=== PATIENT | male | born 1965 | race Caucasian/White ===

== ENCOUNTER → 2018-01-30 09:18 | Outpatient (CLI) | payer OTHER, SELFPAY ==
[2018-01-30 10:24] LABS: Absolute Lymphocyte Count 1.86 X10^3/ul (0.83-4.51); Absolute Neutrophil Count 4.4 X10^3/uL (2.0-7.7); Basophil# 0.02 X10^3/uL; Basophil% 0.3 % (0-1); Eosinophil# 0.12 X10^3/uL; Eosinophils% 1.7 % (0-5); Hematocrit 38.7 % (40-54); Hemoglobin 12.9 g/dl (13.0-16.5); Lymphocyte # 1.86 X10^3/ul (4.0); Lymphocyte % 26.2 % (19-41); Mean Corp Hgb Conc 33.3 g/gl (32-36); Mean Corpuscular Hgb 30.2 pg (27.0-32.0); Mean Corpuscular Volume 90.6 fL (80-94); Monocyte# 0.65 X10^3/uL; Monocyte% 9.2 % (0-10); Neutrophil # 4.42 X10^3/uL (2.7-7.7); Neutrophil % 62.2 % (47-70); Platelet Count 318 K/mm3 (150-450); RBC Distribution Width CV 12.4 % (11.6-14.6); RBC Distribution Width SD 40.7 fl (35.1-43.9); Red Blood Count 4.27 M/mm3 (4.6-6.2); White Blood Count 7.1 K/mm3 (4.4-11.0)
[2018-01-30 10:26] LABS: POSITIVE COUNT NO; POSITIVE DIFFERENTIAL NO; POSITIVE MORPHOLOGY NO
[2018-01-30 11:05] LABS: AST(SGOT) 41 U/L (15-37); Alanine Aminotransfer ALT/SGPT 47 U/L (16-61); Albumin, Serum 3.8 g/dL (3.2-5.0); Alkaline Phosphatase 45 U/L (45-117); Anion Gap 8 (5-15); BUN 13 mg/dL (7-18); BUN/Creat Ratio 11.7 RATIO (10-20); Calcium,Total 8.9 mg/dL (8.5-10.1); Chloride 102 mmol/L (98-107); Cholesterol 159 mg/dL (200); Creatinine, Serum 1.11 mg/dL (0.70-1.30); EST Glomerular Filtration Rate 73 mL/min (>60); Est Glom Filt Rate - Afr Amer 89 mL/min (>60); Globulin 3.6 g/dL (2.2-4.2); Glucose 109 mg/dL (74-106); High Density Lipoprotein 37 mg/dL; Potassium 3.9 mmol/L (3.5-5.1); Protein, Total 7.4 g/dL (6.4-8.2); Sodium Level 135 mmol/L (136-145); Triglycerides 172 mg/dL; Very Low Density Lipoprotein 34 mg/dL (5-40)
== END ==
PROVIDERS: Family Provider Family Medicine; PCP Family Medicine; Visit Provider Family Medicine
DX: E11.9 Type 2 diabetes mellitus without complications (principal); D64.9 Anemia, unspecified
CPT/HCPCS: 36415; 80048; 80061; 80076; 85025

== ENCOUNTER → 2018-06-30 06:18 | Outpatient (CLI) | payer OTHER, SELFPAY | PROVIDERS: Family Provider Family Medicine; PCP Family Medicine; Referring Provider Family Medicine; Visit Provider Family Medicine | DX: R06.02 Shortness of breath (principal) ==

== ENCOUNTER → 2018-07-14 09:38 | Outpatient (CLI) | payer OTHER, SELFPAY ==
--- NOTE | 2018-07-14 09:42 | STE_ITS ---
Reason For Study: SOB Stress Results Protocol: Nathanael Protocol Maximum Predicted HR: 166 bpm Target HR: 141 bpm% Max imum Predicted HR: 102 % DurationHeart Rate Stage (mm:ss) (bpm) BPCom ment BASELINE 83 138/84 1CC DEFINITY STAGE 1 3:00 13 0 182/90 STAGE 2 3:00 17 0 208/941 CC DEFINITY RECOVERY 116 158/8 21CC DEFINITY Stress Duration: 6:00 mm:ss Maximum Stress HR: 170 bpmM ETS: 7 Baseline Echocardiogram Findings Stress Echo Wall motion Data Resting WMIntermediate WMStress WM Resting Wall Motion Wall Motion Stress Ejection Fraction 60 %. All segments Hyperkinetic. All segments Normal. Ejection Fraction 75 %. Stress Results Heart rate response: appropriate Blood pressure response: normal resting BP - exaggerated response Arrhythmias: none Functional capacity: average Stopped secondary to: dyspnea. EKG Data The baseline ECG displays normal sinus rhythm. Exercise ECG: No obvious ECG changes. Symptoms with Stress No c/o chest discomfort during exercise / recovery. Interpretation Summary The study was technically difficult. Contrast injection was performed. Negative (Adequate) Stress Echocardiogram Negative (Adequate) ECG ETT Blood pressure response: exaggerated response to exercise Ordering Physician: Da Spangler Referring Physician: Da Spangler Performed By: Jocelyne Nazario, ARIELLE, RVT
== END ==
PROVIDERS: Family Provider Family Medicine; PCP Family Medicine; Referring Provider Family Medicine; Visit Provider Family Medicine
DX: R06.02 Shortness of breath (principal)
CPT/HCPCS: 93017; 93350; Q9957; A4216; C8928

== ENCOUNTER → 2018-08-06 08:33 | Outpatient (CLI) | payer OTHER, SELFPAY ==
[2018-08-06 10:51] LABS: Absolute Lymphocyte Count 2.12 X10^3/ul (0.83-4.51); Absolute Neutrophil Count 4.1 X10^3/uL (2.0-7.7); Basophil# 0.03 X10^3/uL; Basophil% 0.4 % (0-1); Eosinophil# 0.23 X10^3/uL; Eosinophils% 3.3 % (0-5); Hematocrit 39.4 % (40-54); Hemoglobin 12.9 g/dl (13.0-16.5); Lymphocyte # 2.12 X10^3/ul (4.0); Mean Corp Hgb Conc 32.7 g/gl (32-36); Mean Corpuscular Hgb 30.4 pg (27.0-32.0); Mean Corpuscular Volume 92.7 fL (80-94); Monocyte# 0.53 X10^3/uL; Monocyte% 7.5 % (0-10); Neutrophil # 4.14 X10^3/uL (2.7-7.7); Neutrophil % 58.7 % (47-70); Platelet Count 339 K/mm3 (150-450); RBC Distribution Width SD 43.9 fl (35.1-43.9); Red Blood Count 4.25 M/mm3 (4.6-6.2); White Blood Count 7.1 K/mm3 (4.4-11.0)
[2018-08-06 10:53] LABS: POSITIVE COUNT NO; POSITIVE DIFFERENTIAL NO; POSITIVE MORPHOLOGY NO
[2018-08-06 10:57] LABS: AST(SGOT) 30 U/L (15-37); Alanine Aminotransfer ALT/SGPT 54 U/L (16-61); Albumin, Serum 3.8 g/dL (3.2-5.0); Alkaline Phosphatase 45 U/L (45-117); Anion Gap 8 (5-15); BUN 13 mg/dL (7-18); BUN/Creat Ratio 11.9 RATIO (10-20); Bilirubin, Direct 0.13 mg/dL (0.00-0.30); Calcium,Total 9.2 mg/dL (8.5-10.1); Chloride 101 mmol/L (98-107); Cholesterol 186 mg/dL (200); Creatinine, Serum 1.09 mg/dL (0.70-1.30); EST Glomerular Filtration Rate 75 mL/min (>60); Est Glom Filt Rate - Afr Amer 90 mL/min (>60); Globulin 3.3 g/dL (2.2-4.2); Glucose 114 mg/dL (74-106); High Density Lipoprotein 38 mg/dL; Potassium 4.4 mmol/L (3.5-5.1); Protein, Total 7.1 g/dL (6.4-8.2); Sodium Level 135 mmol/L (136-145); Triglycerides 207 mg/dL; Very Low Density Lipoprotein 41 mg/dL (5-40)
[2018-08-06 11:00] LABS: Hemoglobin A1c 6.7 % (4.2-6.3)
== END ==
PROVIDERS: Family Provider Family Medicine; PCP Family Medicine; Visit Provider Family Medicine
DX: E11.9 Type 2 diabetes mellitus without complications (principal)
CPT/HCPCS: 36415; 80048; 80061; 80076; 83036; 85025; 85610

== ENCOUNTER → 2018-08-13 07:19 | Outpatient (CLI) | payer OTHER, SELFPAY ==
--- NOTE | 2018-08-13 08:22 | RAD_ITS ---
STUDY: X-RAY CHEST REASON FOR EXAM: Male, 52 years old. Shortness of breath TECHNIQUE: PA and lateral views of the chest. COMPARISON: None. FINDINGS: Mild elevated right hemidiaphragm. There is no focal parenchymal abnormality. There is no demonstrated pleural abnormality. Normal size heart. Normal mediastinum and gretel. Normal visualized pulmonary arteries. Normal visualized aortic arch and descending thoracic aorta. Normal visualized thoracic spine. Normal visualized ribs, clavicles, and shoulders. Degenerative clips in the upper abdomen. RAD/Chest PA and Lateral IMPRESSION: No pulmonary edema, congestive heart failure or confluent pneumonia. Electronically Signed: Florence Kessler MD at 7:30 EST , Service support ,
--- NOTE | 2018-08-14 06:24 | PFTCOMP ---
COMPLETE PULMONARY FUNCTION TEST INTERPRETATION Brief HPI: Patient is a 52 year old male, currently under the care of Dr. Mcintyre, who presents to [facility] for complete pulmonary function tests secondary to diagnosis of dyspnea. Respiratory therapist reports good effort and reproducible results. Patient was unable to tolerate plethysmography, so nitrogen washout had to be used for lung volumes. Interpretation: Forced expiration spirometry shows no large airways obstructive ventilatory defect with an FEV1 of 76% predicted. There is no significant bronchodilator response by strict ATS criteria. Spirograms are of good quality and plateau normally. The respiratory flow volume loop shows a normal pattern. Lung volumes by nitrogen washout show a normal total lung capacity at 5.57 L, 86% predicted. All other lung volumes are within normal limits. Diffusion capacity by carbon monoxide is normal at 84% predicted. The airway resistance was not tested. No previous pulmonary function tests were available for review. Impression: These pulmonary function tests are within normal limits
== END ==
PROVIDERS: Family Provider Family Medicine; PCP Family Medicine; Referring Provider Internal Medicine Cardiovascular Disease; Visit Provider Internal Medicine Cardiovascular Disease
DX: R06.09 Other forms of dyspnea (principal)
CPT/HCPCS: 71046; 94060; 94727; 94729

== ENCOUNTER 2018-08-25 07:41 | Day surgery (SDC) | payer OTHER, SELFPAY ==
[2018-08-06 13:43] VITALS: BMI 35.9
[2018-08-24 09:48] VITALS: BMI 35.9
--- NOTE | 2018-08-25 10:21 | CL.D_ITS ---
Patient Name: ZEESHAN ARMAS Study Date: 08/25/2018 Performing: Da Mcintyre MD Ht: 68.89 inches 175 cm : 1965 Wt: 242.51 lbs 110 kg Age: 52 Gender: male BSA: 2.24 PROCEDURE(S) PERFORMED [id number]/LV CLINICAL PROFILE AND INDICATIONS Indications: Suspected CAD Heart Failure: None Stress/Imaging Stress Echocardiogram: Yes Result: Positive (Hypertensive response to exercise)Str ess Echocardiogram: Positive (Hypertensive response to exercise) Angina Classification Anginal Classification w/in 2 Weeks: CCS III CAD Presentations: Other: Dyspnea on Exertion (angina pectoris equivalent) CONCLUSIONS Normal Left Ventricular End Diastolic Pressure Normal LV size, wall motion,and systolic function LVEF: by LV gram 75 % RECOMMENDATIONS Risk factor modification Medical therapy DESCRIPTION OF PROCEDURE The patient arrived to the procedure lab. The risks and benefits of the procedure as well as a full d escription of our services here and current unavailability of surgical backup were fully explained to the patient and/or their significant other prior to the catheterization. The Timeout was completed, verifying the correct patient and procedure. The patient's procedural site was prepped and draped in the usual fashion. Local anesthetic was given subcutaneously to right groin region with Lidocaine 2%. Using a modified Seldinger technique, arterial access was obtained via the right radial artery, a 6F r sheath was inserted. Right Coronary Artery selective angiography was then performed in multiple vi ews using a 5 Fr. 4.0 Smoaks catheter. Left Coronary Artery selective angiography was performed in mul tiple views using a 5 Fr. 4.0 Smoaks catheter. Left Ventriculography was performed in JEAN projection u sing a 5 Fr. Pigtail catheter. LV to AO pullback pressures were then recorded.The arterial sheath was pulled and a TR Band was applied for hemostasis CORONARY ANGIOGRAPHY DOMINANCE: Right Dominant LEFT HEART ASSESSMENT Left Ventricular Ejection Fraction: by LV Gram 75 % Normal LV wall motion Normal Left Ventricular End Diastolic Pressure LVEDP: 10 mmHg LEFT MAIN: Angiographically normal LEFT ANTERIOR DECENDING ARTERY: Angiographically normal CIRCUMFLEX ARTERY: PROX CIRC: 10-25 % Stenosis RIGHT CORONARY ARTERY: MID RCA: 10-25 % Stenosis VALVE FINDINGS: Normal Aortic Valve function Normal Mitral Valve function AORTIC ROOT: Angiographically normal COMPLICATIONS No Complications PROCEDURE MEDICATIONS Versed 1 mg IV Fentanyl 50 mcg IV Versed 1 mg IV Fentanyl 50 mcg IV Oxygen: 2 L/min via nasal cannula Heparin diluted in 23cc Heparinized saline. Patient given 10cc IA of this solution. 08/25/2018 09:46 :42 Verapamil 2.5mg, Ntg 100mcgs, 2000 units of Heparin diluted in 23cc Heparinized saline. Patient give n 10cc IA of this solution. 08/25/2018 09:46:42 SUMMARY OF HEMODYNAMIC DATA Time AIR REST ECG 07:57:17 AO 126/84 (99) SA 09:49:08 LV 121/-3, 7 09:56:31 LV 118/0, 10 09:56:38 LV 123/2, 10 09:57:54 LVp 124/1, 15 09:57:59 AOp 124/74 (94) 09:58:04 Signed By Da Mcintyre MD On 08/25/2018 10:20:38 Da Mcintyre MD
--- OUTSIDE RECORDS SUMMARY | 2018-10-06 20:18 | XMS RPT_ITS ---
:1965 Author Organization OHIP Support Name Relationship Address Phone DYE, CHELSE Unavailable Unavailable + [place] Unavailable [address] + [place] [address] CHANDA RUFUS Unavailable [address] + [place] [address] DYE, CHELSE Unavailable Unavailable + [place] Unavailable [address] + [place] [address] CHANDA, RUFUS Unavailable [address] + [place] [address] DYE, CHELSE Unavailable Unavailable + [place] Unavailable [address] + [place] [address] GOLDIE, RUFUS Unavailable [address] + [place] [address] DYE, CHELSE Unavailable Unavailable + [place] Unavailable [address] + [place] [address] GOLDIE, RUFUS Unavailable [address] + [place] [address] DYE, CHELSE Unavailable Unavailable + [place] Unavailable [address] + [place] [address] GOLDIE, RUFUS Unavailable [address] + [place] [address] DYE, CHELSE Unavailable . + [place] . SE[place] Unavailable [address] + [place] [address] GOLDIE, RUFUS Unavailable [address] + [place] [address] SEACO Unavailable [address] + [place] [address] GOLDIE, RUFUS Unavailable [address] + [place] [address] GOLDIE, CHELSE Unavailable Unavailable + [place] Unavailable [address] + [place] [address] GOLDIE, RUFUS Unavailable [address] + [place] [address] GOLDIE, CHELSE Unavailable Unavailable + [place] Unavailable [address] + [place] [address] GOLDIE, RUFUS Unavailable [address] + [place] [address] GOLDIE, CHELSE Unavailable Unavailable + [place] Unavailable [address] + [place] [address] GOLDIE, RUFUS Unavailable [address] + [place] [address] GOLDIE, CHELSE Unavailable Unavailable + [place] Unavailable [address] + [place] [address] GOLDIE, RUFUS Unavailable [address] + [place] [address] GOLDIE, CHELSE Unavailable Unavailable + [place] Unavailable [address] + [place] [address] GOLDIE, RUFUS Unavailable [address] + [place] [address] GOLDIE, CHELSE Unavailable . + [facility] Providers Name Role Phone Da Mcintyre Attending Unavailable Moodispaw, Da Referring Unavailable Spangler, Da Attending Unavailable Spangler, Da Primary Care Unavailable Spangler, Da Attending Unavailable Spangler, Da Referring Unavailable Spangler, Da Primary Care Unavailable Spangler, Da Attending Unavailable Spangler, Da Referring Unavailable Spangler, Da Primary Care Unavailable Moodispaw, Da Attending Unavailable Spangler, Da Referring Unavailable Jensen, Meena Attending Unavailable Spangler, Da Attending Unavailable Spangler, Da Primary Care Unavailable Moodispaw, Da Attending Unavailable Spangler, Da Referring Unavailable Moodispaw, Da Attending Unavailable Moodispaw, Da Referring Unavailable Spangler, Da Primary Care Unavailable Daniel, Nathanael Attending Unavailable Moodispaw, Da Referring Unavailable Moodispaw, Da Attending Unavailable Spangler, Da Primary Care Unavailable Moodispaw, Da Referring Unavailable Moodispaw, Da Attending Unavailable Moodispaw, Da Referring Unavailable Spangler, Da Primary Care Unavailable PROBLEMS PROBLEMS DATE TYPE CONDITION / CODE ATTENDING STATUS SOURCE 08/25/2018 Unknown E11.9 - Type 2 MoodDa flannery Active [place] diabetes mellitus Community without Hospital complications / Repository E11.9(ICD-10) 08/17/2018 Unknown R06.09 - Other forms Nathanael Sanchez Active [place] of dyspnea / Community R06.09(ICD-10) Hospital Repository 08/06/2018 Unknown I10 - Essential MoodDa flannery Active [place] (primary) Community hypertension / Hospital I10(ICD-10) Repository 08/06/2018 Unknown R94.39 - Abnormal MoodDa flannery Active [place] result of other [facility] cardiovascular [facility] function study / Repository R94.39(ICD-10) 08/05/2018 Unknown R06.02 - Shortness Da Spangler Active [place] of breath / Community R06.02(ICD-10) Hospital Repository PROCEDURES PROCEDURES No Procedure Records FoundRESULTS RESULTS BASIC METABOLIC Collected: 08/27/2018 Status: F Source: [place] PROFILE (BMP) 6:[facility] AM [facility] TYPE CODE TESTS RESULT OUT OF RANGE REFERENCE UNITS LAB L501.0100 74-106 mg/dL Normal GLU 106 Result Comment: Fasting Glucose result from 100 to 125 mg/dL suggests IMPAIRED HOMEOSTASIS per A.D.A. criteria. Please note revised GLUCOSE reference range effective 2017. LAB L501.1000 7-18 mg/dL Normal BUN 18 LAB L501.1100 0.70-1.30 mg/dL Normal CREAT,SERUM 1.19 Result Comment: The validity of the calculated GFR AND GFRAA in patients over 70 years has not been determined. Clinical correlation is essential. LAB L501.1110 >60 mL/min Normal EST GFR 68 Result Comment: Non- GFR Calc LAB L501.1115 >60 mL/min Normal EST GFR - AA 82 Result Comment: GFR Calc LAB L501.1300 10-20 RATIO Normal BUN/CRE 15.1 LAB L501.2200 8.5-10.1 mg/dL CA Normal 9.2 LAB L501.5300 136-145 mmol/L NA Normal 138 LAB L501.5600 3.5-5.1 mmol/L K Normal 3.9 LAB L501.5900 98-107 mmol/L CL Normal 102 LAB L501.6100 21.0-32.0 mmol/L Normal CO2 28.0 LAB L501.6200 5-15 Normal GAP 8 Performed By: #### L500.2500 #### [facility] [address] [place], [address] PULMONARY FUNCTION Observed: 08/15/2018 Status: F Source: [place] REPORT COMP 5:53 AM REPOSITORY [facility] Pulmonary Services/Neurology [address] [place] [address] MR#: [id number] Acct: [id number] Name: ZEESHAN ARMAS Rep #: [id number] : 1965 52 From: Nathanael Sanchez MD Referring Dr: Da Mcintyre MD Status: REG CLI Ordering Dr: Date: Location: [facility] Sex: M C COMPLETE PULMONARY FUNCTION TEST INTERPRETATION Brief HPI: Patient is a 52 year old male, currently under the care of Dr. Mcintyre, who presents to [facility] for complete pulmonary function tests secondary to diagnosis of dyspnea. Respiratory therapist reports good effort and reproducible results. Patient was unable to tolerate plethysmography, so nitrogen washout had to be used for lung volumes. Interpretation: Forced expiration spirometry shows no large airways obstructive ventilatory defect with an FEV1 of 76% predicted. There is no significant bronchodilator response by strict ATS criteria. Spirograms are of good quality and plateau normally. The respiratory flow volume loop shows a normal pattern. Lung volumes by nitrogen washout show a normal total lung capacity at 5.57 L, 86% predicted. All other lung volumes are within normal limits. Diffusion capacity by carbon monoxide is normal at 84% predicted. The airway resistance was not tested. No previous pulmonary function tests were available for review. Impression: These pulmonary function tests are within normal limits 08/15/18 0553 <Electronically signed by Nathanael Sanchez MD> Date Nathanael Sanchez MD CC: Nathanael Sanchez MD; Da Mcintyre MD; Da Spangler MD Date Dictated: 08/14/18623 Date Transcribed: 08/14/18623 Rubber Liner: DEVAN Signed CHEST PA AND LATERAL Observed: 08/13/2018 Status: F Source: [place] 7:21 AM REPOSITORY [facility] Imaging Services [address] [place] [address] Chest PA and Lateral MR#: [id number] Acct: [id number] Name: ZEESHAN ARMAS Rep #: [id number] : 1965 M 52 From: Florence Kessler MD PCP: Da Spangler MD Status: REG CLI Study: Chest PA and Lateral Date of Exam: 08/13/18 Exam# [id number] Ordering Dr: Da Mcintyre MD STUDY: X-RAY CHEST REASON FOR EXAM: Male, 52 years old. Shortness of breath TECHNIQUE: PA and lateral views of the chest. COMPARISON: None. FINDINGS: Mild elevated right hemidiaphragm. There is no focal parenchymal abnormality. There is no demonstrated pleural abnormality. Normal size heart. Normal mediastinum and [place]. Normal visualized pulmonary arteries. Normal visualized aortic arch and descending thoracic aorta. Normal visualized thoracic spine. Normal visualized ribs, clavicles, and shoulders. Degenerative clips in the upper abdomen. RAD/Chest PA and Lateral IMPRESSION: No pulmonary edema, congestive heart failure or confluent pneumonia. Electronically Signed: Florence Kessler MD at 7:30 EST , Service support , CC: Da Mcintyre MD; Da Spangler MD Rubber Liner: Signed CARDIOLOGY VISIT Observed: 08/06/2018 Status: F Source: [place] REPORT 3:14 PM REPOSITORY [facility] [address] [place] [address] OFFICE VISIT Date of Service: 08/06/18 MR#: [id number] Acct: [id number] Name: ZEESHAN ARMAS Rep #: [id number] : 1965 Provider: Da Mcintyre MD Age/Sex: 52/M Location: [facility] Status: Signed HPI HPI Details: ZEESHAN ARMAS, is a 52 M who presents to the office today for cardiovascular consultation based upon concerns of shortness of breath/dyspnea on exertion and an abnormal stress echocardiogram demonstrating a blood pressure response considered compatible with an exaggerated blood pressure response. He states that he has been having progressive shortness of breath and dyspnea on exertion. This includes walking down and back up his driveway. He states if he has to do anything more than walking with a grandchildren at a slow pace he becomes easily short of breath and dyspneic. He has not had any orthopnea, PND, or peripheral pitting edema. He states that with his shortness of breath and dyspnea he does not necessarily have ongoing chest discomfort. He did have a stress echocardiogram. He exercised for 6 minutes. He was noted to have an exaggerated blood pressure response. He had no definitive ECG changes or echocardiographic changes suggestive of myocardial ischemia. However it was a technically diminished quality study and it did involve the use of contrast-enhanced imaging. Today he had an ECG in the office. He was noted to be in sinus rhythm. He has an RSR prime pattern in V1. He has poor R wave progression. He had no acute ECG changes. He has been on antihypertensive therapy with losartan/HCTZ. He states he was on this when he had his exercise tolerance test. He also notes that he is working his way through evaluation for obstructive sleep apnea. Intake Vital Signs08/06/18 Height 5 ft 9 in 08/06/18 Weight: 243 lb 08/06/18 Body Mass Index (BMI) 35.9 08/06/18 Blood Pressure 120/60 Intake Visit Reasons: Abn. Stress Echo, Ref. Malina Calles Allergies No Known Allergies Allergy (Unverified 08/06/18 13:44) Medications fenofibrate 160 mg tablet 160 mg PO DAILY 08/05/18 [History Confirmed 08/06/18] ferrous sulfate 325 mg (65 mg iron) tablet 325 mg PO TID PRN tab 08/05/18 [History Confirmed 08/06/18] metformin 500 mg tablet 500 mg PO DAILY tab 08/05/18 [History Confirmed 08/06/18] omega-3 fatty acids 1,000 mg capsule 1,000 mg PO DAILY 08/05/18 [History Confirmed 08/06/18] amlodipine 2.5 mg tablet 2.5 mg PO DAILY #30 tab 08/06/18 [Rx Confirmed 08/06/18] aspirin 81 mg chewable tablet 81 mg PO DAILY #30 tab 08/06/18 [Rx Confirmed 08/06/18] clopidogrel 75 mg tablet 75 mg PO DAILY #30 tab 08/06/18 [Rx Confirmed 08/06/18] losartan 100 mg-hydrochlorothiazide 12.5 mg tablet 1 tab PO DAILY 08/06/18 [History Confirmed 08/06/18] iipzsiuz-ugr-egzog acid 300 mcg-lycopene 600 mcg-lutein 300 mcg tablet 1 tab PO DAILY 08/06/18 [History Confirmed 08/06/18] [facility] Medical History Hyperlipemia (Chronic) Type 2 diabetes mellitus (Chronic) Essential hypertension (Chronic) Fatigue (Acute) Dyspnea (Acute) Abnormal stress echocardiogram (Acute) Family History Mother Diabetes Cancer Hypertension Father Diabetes Hypertension Brother Diabetes Hypertension Cancer Grandmother CVA (cerebral vascular accident) Diabetes Social History Smoking Status: Never smoker alcohol intake: current details: occasional substance use type: does not use ROS Const Const: Positive for fatigue (conitnues); negative for weakness, weight gain, weight loss, frequent falls or excessive sweating Eyes Eyes: Negative for change in vision, blurry vision or transient loss of vision ENT ENT: Positive for dizziness (slight when up and moving about); negative for balance problems Cardio Chest Pain: No Palpitations: No Edema: None Muscle aches with walking: None Resp Respiratory: Positive for SOB with activity (prgressively increased); negative for SOB at rest GI GI: Negative vomiting or vomiting blood/hematemesis : Negative for hematuria Musc Musc: Positive for muscle aches/ myalgia (bilat knees,shoulders); negative for balance problems, muscle weakness or joint pain Skin Skin: Negative non-healing lesions or rash Neuro Neuro: Positive for dizziness (slight when up and moving about); negative for weakness, blurry vision, lightheadedness, frequent falls or orthostatic symptoms Paul Hematologic/Lymphatic: Negative for easy bleeding Endo Endo: Positive for fatigue (conitnues); negative for excessive sweating Psych Psych: Negative for anxiety or depression Allergy Allergy/Immunology: Negative for hives, Negative for rash Cardiology Exam Const Appearance: cooperative, healthy appearing, comfortable, no acute distress, well developed and well groomed Nutritional Appearance: overweight Orientation: alert, awake and oriented x3 Head Head: normal to inspection, normocephalic and atraumatic Ears: hearing grossly normal bilaterally Nose: external nose normal Face and Sinus: face symmetric Mouth: oral mucosae normal Teeth and gingiva: fair dentition Eyes Eyelids: eyelids normal Conjunctivae: conjunctivae normal Pupils: PERRL EOM: EOM intact bilaterally Neck Neck: normal visual inspection and full ROM Carotids: normal carotid upstroke Chest Chest inspection: normal inspection of the chest, symmetric chest movement and normal respiratory effort Auscultation: Bilateral: Clear to Auscultation Cardio Palpation: normal PMI Rate: regular rate Rhythm: regular rhythm Heart sounds: S1 normal and S2 normal GI GI: normal to inspection, bowel sounds present and soft Neuro General: alert, awake and oriented x3 Skin Skin: no rashes or lesions noted Extremities Pulses: Normal: Right Radial Pulse, Left Radial Pulse Lower Extremity Edema: None: Bilateral Psych Psychological: normal affect Assessment AND Plan 1. Abnormal stress echocardiogram R94.39 Plan At the present time his stress echocardiogram was considered abnormal based upon his exaggerated blood pressure response. He did not have classic elective cardiographic changes or echocardiographic changes. However his echocardiographic images were technically difficult and did require the use of contrast enhancement. Based upon his symptoms, his risk factors, etc. it was felt not unreasonable to consider him for further evaluation for the possibility of CAD. This would include a definitive evaluation with a diagnostic cardiac catheterization. The procedure and risks were discussed with him. He was agreeable to this. Orders Orders: 2. Dyspnea on exertion R06.09 Plan With respect to his shortness of breath and dyspnea he will undergo further evaluation as noted above. At the same time he was encouraged to continue his obstructive sleep apnea evaluation. He was also asked to have a chest x-ray and PFTs performed. There is some concern as to whether some of his shortness of breath and dyspnea is related to his exaggerated blood pressure response. Although his blood pressure appears to be within acceptable range at rest he will add additional medical therapy with amlodipine at 2.5 mg p.o. daily to assist with helping to minimize his blood pressure response with exertion. Orders Orders: 3. Hyperlipidemia, unspecified hyperlipidemia type E78.5 Plan He does have a history of hyperlipidemia. He is on medical management for this. 4. Essential hypertension I10 Plan Again his blood pressure may be a concern. His medications will be adjusted as noted above. However, he will continue both cardiac and pulmonary evaluation for his symptoms in addition to further evaluation care of his blood pressure. Orders Orders: Plan Detail Other Medications New: Additional Comments The above was discussed with the patient and his spouse. He was agreeable to this approach. Thank you for allowing me to participate in the care of your patient. Please don't hesitate to call if any issues arise. This note was generated using a voice recognition system and there may be incorrect words, spelling or punctuation that were not noted when reviewing the office note prior to saving. Follow Up 3 Months (PFM) Coding Level of Care Code Off vis,new,level 5 Diagnoses Abnormal stress echocardiogram R94.39 Dyspnea on exertion R06.09 Dyspnea type: dyspnea on exertion Hyperlipidemia, unspecified hyperlipidemia type E78.5 Hyperlipidemia type: unspecified Essential hypertension I10 Coding Level of Care Code Off vis,new,level 5 Diagnoses Abnormal stress echocardiogram R94.39 Dyspnea on exertion R06.09 Dyspnea type: dyspnea on exertion Hyperlipidemia, unspecified hyperlipidemia type E78.5 Hyperlipidemia type: unspecified Essential hypertension I10 08/06/18 1514 <Electronically signed by Da Mcintyre MD> Date Da Mcintyre MD Cosigner Signature: Date (if applicable) CC: Da Spangler MD 12 LEAD EKG PERFORMED Observed: 08/06/2018 Status: F Source: [place] BY [facility] 1:40 PM [facility] HOSPITAL REPOSITORY [facility] [address] [place] [address] 12 Lead EKG performed by [facility] 08/06/181338 MR#: [id number] Acct: [id number] Name: ZEESHAN ARMAS Rep #: [id number] : 1965 52 From: Da Mcintyre MD Attending Dr: Da Mcintyre MD Status: REG AMB Ordering Dr: Da Mcintyre MD Date: 08/06/18 Location: [facility] Sex: M C Admitted: [facility]/12 Lead EKG performed by [facility] ECG Report Interpretation Sinus Rhythm RSR(V1) -nondiagnostic. Poor R wave progressionABNORMAL Electronically signed on 08/06/2018 at 14:06 by Da Mcintyre Software Version [id number] 08/06/18 1411 Date Da Mcintyre MD CC: Da Spangler MD Date Dictated: 08/06/181338 Date Transcribed: 08/06/181338 Rubber Liner: PM Signed PROTHROMBIN TIME W/INR Collected: 08/06/2018 Status: F Source: [place] 8:34 AM [facility] HOSPITAL REPOSITORY TYPE CODE TESTS RESULT OUT OF RANGE REFERENCE UNITS LAB L300.4150 11.7-14.9 SECONDS Normal PROTIME 13.0 LAB L300.4200 Normal INR 1.0 Performed By: #### L300.3900 #### [facility] [address] [place], [address] CBC W/DIFF, AUTOMATED Collected: 08/06/2018 Status: F Source: [place] 8:34 AM REPOSITORY TYPE CODE TESTS RESULT OUT OF RANGE REFERENCE UNITS LAB L100.1000 4.4-11.0 K/mm3 Normal WBC 7.1 LAB L100.1200 4.6-6.2 M/mm3 Low RBC 4.25 LAB L100.1300 13.0-16.5 g/dl Low HGB 12.9 LAB L100.1400 40-54 % Low HCT 39.4 LAB L100.1500 80-94 fL Normal MCV 92.7 LAB L100.1600 27.0-32.0 pg Normal MCH 30.4 LAB L100.1700 32-36 g/gl Normal MCHC 32.7 LAB L100.1810 11.6-14.6 % Normal RDW CV 13.0 LAB L100.1820 35.1-43.9 fl Normal RDW SD 43.9 LAB L100.1900 150-450 K/mm3 Normal PLT 339 LAB L100.2000 6.2-12.0 fl Normal MPV 9.0 LAB L100.2100 47-70 % Normal NEUT% 58.7 LAB L100.2200 19-41 % Normal LY% 30.0 LAB L100.2300 0-10 % Normal MONO% 7.5 LAB L100.2400 0-5 % Normal EO% 3.3 LAB L100.2500 0-1 % Normal BASO% 0.4 LAB L100.2550 0.0-0.9 % Normal IM GRAN % 0.100 Result Comment: IG% - Immature Granulocytes (promyelocytes, myelocytes and metamyelocytes) > 1% indicates that a LEFT SHIFT is Present. LAB L100.2620 2.0-7.7 X10 3/uL Normal Absolute Neut 4.1 LAB L100.2720 0.83-4.51 X10 3/ul Normal Absolute Lymph 2.12 Performed By: #### L100.0100 #### [facility] [address] [place], [address] BASIC METABOLIC Collected: 08/06/2018 Status: F Source: [place] PROFILE (BMP) 8:34 AM REPOSITORY Order Comment: UTO TYPE CODE TESTS RESULT OUT OF RANGE REFERENCE UNITS LAB L501.0100 74-106 mg/dL High GLU 114 Result Comment: Fasting Glucose result from 100 to 125 mg/dL suggests IMPAIRED HOMEOSTASIS per A.D.A. criteria. Please note revised GLUCOSE reference range effective 2017. LAB L501.1000 7-18 mg/dL Normal BUN 13 LAB L501.1100 0.70-1.30 mg/dL Normal CREAT,SERUM 1.09 Result Comment: The validity of the calculated GFR AND GFRAA in patients over 70 years has not been determined. Clinical correlation is essential. LAB L501.1110 >60 mL/min Normal EST GFR 75 Result Comment: Non- GFR Calc LAB L501.1115 >60 mL/min Normal EST GFR - AA 90 Result Comment: GFR Calc LAB L501.1300 10-20 RATIO Normal BUN/CRE 11.9 LAB L501.2200 8.5-10.1 mg/dL CA Normal 9.2 LAB L501.5300 136-145 mmol/L Low NA 135 LAB L501.5600 3.5-5.1 mmol/L K Normal 4.4 LAB L501.5900 98-107 mmol/L CL Normal 101 LAB L501.6100 21.0-32.0 mmol/L Normal CO2 26.0 LAB L501.6200 5-15 Normal GAP 8 Performed By: #### L500.2500, L500.3400, L500.4100 #### [facility] [address] [place], [place], [address] LIVER PROFILE Collected: 08/06/2018 Status: F Source: [place] 8:34 AM REPOSITORY Order Comment: UTO TYPE CODE TESTS RESULT OUT OF RANGE REFERENCE UNITS LAB L501.1500 6.4-8.2 g/dL Normal T PROT 7.1 LAB L501.1800 3.2-5.0 g/dL Normal ALB 3.8 LAB L501.1950 2.2-4.2 g/dL Normal GLOB 3.3 LAB L501.4100 15-37 U/L Normal AST 30 LAB L501.4305 45-117 U/L Normal ALK P 45 LAB L501.4405 16-61 U/L Normal ALT 54 LAB L501.4600 0.20-1.00 mg/dL Normal T BILI 0.30 LAB L501.4700 0.00-0.30 mg/dL Normal D BILI 0.13 Performed By: #### L500.2500, L500.3400, L500.4100 #### [facility] [address] [place], [place], [id number] LIPID PROFILE Collected: 08/06/2018 Status: F Source: [place] 8:34 AM REPOSITORY Order Comment: UTO TYPE CODE TESTS RESULT OUT OF RANGE REFERENCE UNITS LAB L501.4900 200 mg/dL Normal CHOL 186 Result Comment: <200 mg/dL Desirable 200-240 mg/dL Borderline >240 mg/dL High Risk LAB L501.5000 mg/dL High TRIG 207 Result Comment: The drugs N-Acetylcysteine and Metamizole may falsely depress this assay. Serum Triglycerides Reference Interval Normal <150 mg/dL Borderline high 150 - 199 mg/dL High 200 - 499 mg/dL Very High > or = 500 mg/dL LAB L501.6400 mg/dL Low HDL 38 Result Comment: The drugs N-Acetylcysteine and Metamizole may falsely depress this assay. Reference Range HDL <40 mg/dL Low HDL Cholesterol HDL >or= 60 mg/dL High HDL Cholesterol LAB L501.6500 0-130 mg/dL Normal LDL 107 LAB L501.6600 5-40 mg/dL High VLDL 41 Performed By: #### L500.2500, L500.3400, L500.4100 #### [facility] [address] [place], [place], [id number] HEMOGLOBIN A1C Collected: 08/06/2018 Status: F Source: [place] 8:34 [facility] REPOSITORY TYPE CODE TESTS RESULT OUT OF RANGE REFERENCE UNITS LAB L501.9985 4.2-6.3 % High HGB A1C 6.7 Performed By: #### L501.9985 #### [facility] [address] [place], [address] STRESS TEST ECHO W/O Observed: 07/14/2018 Status: F Source: [place] CONTRAST 1:55 PM [facility] HOSPITAL REPOSITORY [facility] Cardiovascular Services [address] [place] [address] Stress Test Echo W/Contrast MR#: [id number] Acct: [id number] Name: ZEESHAN ARMAS Rep #: [id number] : 1965 52 From: Da Mcintyre MD Primary Care: Da Spangler MD Status: REG CLI Ordering Dr: Da Spangler MD Sex: M C Reason For Study: SOB Stress Results Protocol: Nathanael Protocol Maximum Predicted HR: 166 bpm Target HR: 141 bpm% Max imum Predicted HR: 102 % DurationHeart Rate Stage (mm:ss) (bpm) BPCom ment BASELINE 83 138/84 1CC DEFINITY STAGE 1 3:00 13 0 182/90 STAGE 2 3:00 17 0 208/941 CC DEFINITY RECOVERY 116 158/8 21CC DEFINITY Stress Duration: 6:00 mm:ss Maximum Stress HR: 170 bpmM ETS: 7 Baseline Echocardiogram Findings Stress Echo Wall motion Data Resting WMIntermediate WMStress WM Resting Wall Motion Wall Motion Stress Ejection Fraction 60 %. All segments Hyperkinetic. All segments Normal. Ejection Fraction 75 %. Stress Results Heart rate response: appropriate Blood pressure response: normal resting BP - exaggerated response Arrhythmias: none Functional capacity: average Stopped secondary to: dyspnea. EKG Data The baseline ECG displays normal sinus rhythm. Exercise ECG: No obvious ECG changes. Symptoms with Stress No c/o chest discomfort during exercise / recovery. Interpretation Summary The study was technically difficult. Contrast injection was performed. Negative (Adequate) Stress Echocardiogram Negative (Adequate) ECG ETT Blood pressure response: exaggerated response to exercise Ordering Physician: Da Spangler Referring Physician: Da Spangler Performed By: Jocelyne Nazario, RDCS, RVT 07/14/18 1355 Date Da Mcintyre MD CC: Da Spangler MD Date Dictated: 07/14/18 1001 Date Transcribed: 07/14/18 5078 Rubber Liner: Signed CBC W/DIFF, AUTOMATED Collected: 01/30/2018 Status: F Source: [place] 9:20 AM REPOSITORY TYPE CODE TESTS RESULT OUT OF RANGE REFERENCE UNITS LAB L100.1000 4.4-11.0 K/mm3 Normal WBC 7.1 LAB L100.1200 4.6-6.2 M/mm3 Low RBC 4.27 LAB L100.1300 13.0-16.5 g/dl Low HGB 12.9 LAB L100.1400 40-54 % Low HCT 38.7 LAB L100.1500 80-94 fL Normal MCV 90.6 LAB L100.1600 27.0-32.0 pg Normal MCH 30.2 LAB L100.1700 32-36 g/gl Normal MCHC 33.3 LAB L100.1810 11.6-14.6 % Normal RDW CV 12.4 LAB L100.1820 35.1-43.9 fl Normal RDW SD 40.7 LAB L100.1900 150-450 K/mm3 Normal PLT 318 LAB L100.2000 6.2-12.0 fl Normal MPV 9.0 LAB L100.2100 47-70 % Normal NEUT% 62.2 LAB L100.2200 19-41 % Normal LY% 26.2 LAB L100.2300 0-10 % Normal MONO% 9.2 LAB L100.2400 0-5 % Normal EO% 1.7 LAB L100.2500 0-1 % Normal BASO% 0.3 LAB L100.2550 0.0-0.9 % Normal IM GRAN % 0.400 Result Comment: IG% - Immature Granulocytes (promyelocytes, myelocytes and metamyelocytes) > 1% indicates that a LEFT SHIFT is Present. LAB L100.2620 2.0-7.7 X10 3/uL Normal Absolute Neut 4.4 LAB L100.2720 0.83-4.51 X10 3/ul Normal Absolute Lymph 1.86 Performed By: #### L100.0100 #### [facility] [address] [place], [place], [id number] BASIC METABOLIC Collected: 01/30/2018 Status: F Source: [place] PROFILE (BMP) 9:20 AM REPOSITORY TYPE CODE TESTS RESULT OUT OF RANGE REFERENCE UNITS LAB L501.0100 74-106 mg/dL High GLU 109 Result Comment: Fasting Glucose result from 100 to 125 mg/dL suggests IMPAIRED HOMEOSTASIS per A.D.A. criteria. Please note revised GLUCOSE reference range effective 2017. LAB L501.1000 7-18 mg/dL Normal BUN 13 LAB L501.1100 0.70-1.30 mg/dL Normal CREAT,SERUM 1.11 Result Comment: The validity of the calculated GFR AND GFRAA in patients over 70 years has not been determined. Clinical correlation is essential. LAB L501.1110 >60 mL/min Normal EST GFR 73 Result Comment: Non- GFR Calc LAB L501.1115 >60 mL/min Normal EST GFR - AA 89 Result Comment: GFR Calc LAB L501.1300 10-20 RATIO Normal BUN/CRE 11.7 LAB L501.2200 8.5-10.1 mg/dL CA Normal 8.9 LAB L501.5300 136-145 mmol/L Low NA 135 LAB L501.5600 3.5-5.1 mmol/L K Normal 3.9 LAB L501.5900 98-107 mmol/L CL Normal 102 LAB L501.6100 21.0-32.0 mmol/L Normal CO2 25.0 LAB L501.6200 5-15 Normal GAP 8 Performed By: #### L500.2500, L500.3400, L500.4100 #### [facility] [address] [place], [address] LIVER PROFILE Collected: 01/30/2018 Status: F Source: [place] 9:20 AM REPOSITORY TYPE CODE TESTS RESULT OUT OF RANGE REFERENCE UNITS LAB L501.1500 6.4-8.2 g/dL Normal T PROT 7.4 LAB L501.1800 3.2-5.0 g/dL Normal ALB 3.8 LAB L501.1950 2.2-4.2 g/dL Normal GLOB 3.6 LAB L501.4100 15-37 U/L High AST 41 LAB L501.4305 45-117 U/L Normal ALK P 45 LAB L501.4405 16-61 U/L Normal ALT 47 LAB L501.4600 0.20-1.00 mg/dL Normal T BILI 0.40 LAB L501.4700 0.00-0.30 mg/dL Normal D BILI 0.10 Performed By: #### L500.2500, L500.3400, L500.4100 #### [facility] [address] [place], [address] LIPID PROFILE Collected: 01/30/2018 Status: F Source: [place] 9:20 AM REPOSITORY TYPE CODE TESTS RESULT OUT OF RANGE REFERENCE UNITS LAB L501.4900 200 mg/dL Normal CHOL 159 Result Comment: <200 mg/dL Desirable 200-240 mg/dL Borderline >240 mg/dL High Risk LAB L501.5000 mg/dL Normal TRIG 172 Result Comment: The drugs N-Acetylcysteine and Metamizole may falsely depress this assay. Serum Triglycerides Reference Interval Normal <150 mg/dL Borderline high 150 - 199 mg/dL High 200 - 499 mg/dL Very High > or = 500 mg/dL LAB L501.6400 mg/dL Low HDL 37 Result Comment: The drugs N-Acetylcysteine and Metamizole may falsely depress this assay. Reference Range HDL <40 mg/dL Low HDL Cholesterol HDL >or= 60 mg/dL High HDL Cholesterol LAB L501.6500 0-130 mg/dL Normal LDL 88 LAB L501.6600 5-40 mg/dL Normal VLDL 34 Performed By: #### L500.2500, L500.3400, L500.4100 #### [facility] [address] [place], [address] ALLERGIES ALLERGIES DATE TYPE / CODE NAME / CODE REACTION SEVERITY SOURCE 08/06/2018 Drug No Known Unknown [place] [facility] Allergy/4160 Allergies/F00 Hospital 24680(SNOMED 1938086(RXNOR Repository CT) M) ENCOUNTERS ENCOUNTERS ADMIT/DISCHARGE ACCOUNT ADMITTING ENCOUNTER LOCATION SOURCE NUMBER CLASS 08/27/2018 [id number] Ambulatory [place] 7 [facility] ing:LAB Repository 08/25/2018/ [id number] Ambulatory BMSBuilding:W [place] 8 8 [facility] Repository 08/25/2018/ [id number] [place]ulatory [place] 8 [facility] ing:CLSP Repository 08/14/2018 [id number] Ambulatory BMSBuilding:W [place] 2 [facility] Repository 08/13/2018 [id number] Ambulatory [place] 5 [facility] ing:PSN Repository 08/06/2018/ [id number] Ambulatory BMSBuilding:B [place] 8 0 [facility] Repository 08/06/2018 [id number] Ambulatory [place] 3 [facility] Hospital ing:MFPLAB Repository 08/05/2018 [id number] Ambulatory BMSBuilding:B [place] 0 [facility] Repository 07/14/2018 [id number] Ambulatory [place] 2 [facility] Hospital ing:[facility] Repository 07/14/2018 [id number] Ambulatory BMSBuilding:W [place] 3 [facility] Repository 06/30/2018 [id number] Ambulatory [place] 4 [facility] Hospital ing:[facility] Repository 01/30/2018 [id number] Ambulatory [place] 6 [facility] Hospital ing:MFPLAB Repository PAYERS PAYERS ENCOUNTER GUARANTOR PAYER SUBSCRIBER SOURCE 08/27/2018 ZEESHAN Reid Primary ZEESHAN [id number] Insurance:HEALTH VANSICKLEDOB: [facility] [id number], [place] [address]Xoeyrk Number: Repository [id number]: ([phone]) [id number] [phone] () Date:7781-93-60KI [address] [place] [address]CI: 08/27/2018 Secondary NOT GIVENUNK [place] Insurance:SELF PAY Community [facility] Number: Effective Repository Date:2018-08-27 08/25/2018 ZEESHAN Reid Primary ZEESHAN Reid [place] [id number] Insurance:HEALTH VANSICKLEDOB: Community [facility] [employer]/[facility] [id number], [place] [address]Lkzuwd Number: Repository [phone]: (419) [id number] [phone] (HP) Date:9820-45-64ZG [facility] [address] [place] [address]JW: 08/25/2018 Secondary NOT GIVENUNK [place] Insurance:SELF PAY [facility] Number: Effective Repository Date:2018-08-25 08/25/2018 ZEESHAN Reid Primary ZEESHAN Reid [place] [id number] Insurance:HEALTH VANSICKLEDOB: Community [facility]/[facility] [id number], [place] [address]Khkrip Number: Repository [id number]: ([phone] [id number] [phone] (HP) Date:9476-35-74CB [address] [address]UL: 08/25/2018 Secondary NOT GIVENUNK [place] Insurance:SELF PAY [facility] Number: Effective Repository Date:2018-08-06 08/14/2018 ZEESHAN Reid Primary ZEESHAN Reid [place] [id number] Insurance:HEALTH VANSICKLEDOB: Community [facility]/[facility] [id number], [place] [address]Ndhkeg Number: Repository [id number]: ([phone] [id number] [phone] (HP) Date:7988-58-42IB [address] [address]LC: 08/14/2018 Secondary NOT GIVENUNK [place] Insurance:SELF PAY Community [facility] Number: Effective Repository Date:2018-08-14 08/13/2018 ZEESHAN Reid Primary ZEESHAN Reid [place] [id number] Insurance:HEALTH VANSICKLEDOB: Community [facility]/[facility] [id number], [place] [address]Unjvos Number: Repository [phone]: ([phone] [id number] [phone] (HP) Date:8199-60-65JX [address] [place] [address]DF: 08/13/2018 Secondary NOT GIVENUNK [place] Insurance:SELF PAY [facility] Number: Effective Repository Date:2018-08-06 08/06/2018 ZEESHAN Reid Primary ZEESHAN Reid [place] [id number] Insurance:HEALTH VANSICKLEDOB: Community [facility] [id number], [place] [address]Saxiap Number: Repository [phone]: [phone] [id number] [phone] (HP) Date:7105-54-86MB [address] [place] [address]RS: 08/06/2018 Secondary NOT GIVENUNK [place] Insurance:SELF PAY [facility] Number: Effective Repository Date:2018-08-06 08/06/2018 ZEESHAN Reid Primary ZEESHAN Reid [place] [id number] Insurance:HEALTH VANSICKLEDOB: Community [facility] [employer]/[facility] [id number], [place] [address]Zlvune Number: Repository [id number]: ([phone] [id number] [phone] (HP) Date:8527-41-37YU [address], [place] [address]HW: 08/06/2018 Secondary NOT GIVENUNK [place] Insurance:SELF PAY [facility] Number: Effective Repository Date:2018-08-06 08/05/2018 ZEESHAN Reid Primary ZEESHAN Reid [place] [id number] Insurance:HEALTH VANSICKLEDOB: Community [facility]/[facility] [id number] [place], [place] [address]Ilwhkd Number: Repository [id number]: ([phone]) [id number] [phone] (HP) Date:2435-95-25PP [address] [place] [address]TN: 08/05/2018 Secondary NOT GIVENUNK [place] Insurance:SELF PAY Community [facility] Number: Effective Repository Date:2018-08-05 07/14/2018 ZEESHAN K Primary ZEESHAN Reid [place] [id number] Insurance:HEALTH VANSICKLEDOB: Community [facility] [id number] [place], [place] [address]Tnmfio Number: Repository [id number]: ([phone] [id number] [phone] (HP) Date:2493-20-08BG [address] [place] [phone]: 07/14/2018 Secondary NOT GIVENUNK [place] Insurance:SELF PAY Community [facility] Number: Effective Repository Date:2018-07-06 07/14/2018 ZEESHAN K Primary ZEESHAN Reid [place] [id number] Insurance:HEALTH VANSICKLEDOB: Community [facility] [facility] [id number] [place], [place] [address]Hgdnwn Number: Repository [id number]: ([phone] [id number] [phone] (HP) Date:2644-90-40FZ [address] [place] [phone]: 07/14/2018 Secondary NOT GIVENUNK [place] Insurance:SELF PAY [facility] Number: Effective Repository Date:2018-07-14 06/30/2018 ZEESHAN Reid Primary ZEESHAN Reid [place] [id number] Insurance:HEALTH VANSICKLEDOB: Community [facility]/[facility] [id number] [place], [place] [address]Oywzdu Number: Repository [id number]: ([phone]) [id number] [phone] (HP) Date:8442-32-36JB [address] [place] [address]BC: 06/30/2018 Secondary NOT GIVENUNK [place] Insurance:SELF PAY [facility] Number: Effective Repository Date:2018-06-18 01/30/2018 Zeeshan Tello [id number] Insurance:HEALTH SickleDOB: Community [facility] [id number], [place] [address]Uobxms Number: Repository [id number]: ([phone] [id number] [phone] () Date:9661-01-90NW [address], [place] [address]TL: 01/30/2018 Secondary NOT GIVENUNK [place] Insurance:SELF PAY [facility] Number: Effective Repository Date:2018-01-30
== END 2018-08-25 12:50 | disposition home or self-care (01) ==
PROVIDERS: Family Provider Family Medicine; PCP Family Medicine; Referring Provider Internal Medicine Cardiovascular Disease; Visit Provider Internal Medicine Cardiovascular Disease
DX: I25.10 Atherosclerotic heart disease of native coronary artery without angina pectoris (principal); R94.39 Abnormal result of other cardiovascular function study; E78.5 Hyperlipidemia, unspecified; E11.9 Type 2 diabetes mellitus without complications; I10 Essential (primary) hypertension; Z79.84 Long term (current) use of oral hypoglycemic drugs; Z79.82 Long term (current) use of aspirin; Z79.899 Other long term (current) drug therapy
CPT/HCPCS: 93458; 99152; 99153; J7040; Q9967; C1769; C1894

== ENCOUNTER → 2018-08-27 06:28 | Outpatient (CLI) | payer OTHER, SELFPAY ==
[2018-08-27 07:40] LABS: Anion Gap 8 (5-15); BUN 18 mg/dL (7-18); BUN/Creat Ratio 15.1 RATIO (10-20); Calcium,Total 9.2 mg/dL (8.5-10.1); Chloride 102 mmol/L (98-107); Creatinine, Serum 1.19 mg/dL (0.70-1.30); EST Glomerular Filtration Rate 68 mL/min (>60); Est Glom Filt Rate - Afr Amer 82 mL/min (>60); Glucose 106 mg/dL (74-106); Potassium 3.9 mmol/L (3.5-5.1); Sodium Level 138 mmol/L (136-145)
--- OUTSIDE RECORDS SUMMARY | 2018-10-22 06:30 | XMS RPT_ITS ---
:1965 Author Organization OHIP Support Name Relationship Address Phone DYE, CHELSE Unavailable Unavailable + [place] Unavailable [address] + [place] [address] CHANDA RUFUS Unavailable [address] + [place] [address] DYE, CHELSE Unavailable Unavailable + [place], [place] Unavailable [address] + [place] [address] CHANDA, RUFUS Unavailable [address] + [place] [address] DYE, CHELSE Unavailable Unavailable + [place], [place] Unavailable [address] + [place] [address] GOLDIE, RUFUS Unavailable [address] + [place] [address] DYE, CHELSE Unavailable Unavailable + [place], [place] Unavailable [address] + [place] [address] GOLDIE, RUFUS Unavailable [address] + [place] [address] DYE, CHELSE Unavailable Unavailable + [place] Unavailable [address] + [place] [address] GOLDIE, RUFUS Unavailable [address] + [place] [address] DYE, CHELSE Unavailable . + [place], [place] . SEACO Unavailable [address] + [place] [address] GOLDIE, RUFUS Unavailable [address] + [place] [address] SEACO Unavailable [address] + [place] [address] GOLDIE, RUFUS Unavailable [address] + [place] [address] GOLDIE, CHELSE Unavailable Unavailable + [place] Unavailable [address] + [place] [address] GOLDIE, RUFUS Unavailable [address] + [place] [address] GOLDIE, CHELSE Unavailable Unavailable + [place] Unavailable [address] + [place] [address] GOLDIE, RUFUS Unavailable [address] + [place] [address] GOLDIE, CHELSE Unavailable Unavailable + [place], [place] Unavailable [address] + [place] [address] GOLDIE, RUFUS Unavailable [address] + [place] [address] GOLDIE, CHELSE Unavailable Unavailable + [place] Unavailable [address] + [place] [address] GOLDIE, RUFUS Unavailable [address] + [place] [address] GOLDIE, CHELSE Unavailable Unavailable + [place] Unavailable [address] + [place] [address] GOLDIE, RUFUS Unavailable [address] + [place] [address] GOLDIE, CHELSE Unavailable . + [facility] Providers Name Role Phone Da [...] R06.09 - Other forms Nathanael Sanchez Active [place] of dyspnea / Community R06.09(ICD-10) Hospital Repository 08/06/2018 Unknown I10 - Essential MoodDa flannery Active [place] (primary) Community hypertension / Hospital I10(ICD-10) Repository 08/06/2018 Unknown R94.39 - Abnormal MoodDa flannery Active [place] result of other [facility] cardiovascular Hospital function study / Repository R94.39(ICD-10) [...] GAP 8 Performed By: #### L500.2500 #### [facility] [address] [place], [address] PULMONARY FUNCTION Observed: 08/15/2018 Status: F Source: [place] REPORT COMP 5:53 AM [facility] REPOSITORY [facility] Pulmonary Services/Neurology [address] [place] [address] MR#: [id number] Acct: [id number] Name: ZEESHAN ARMAS Rep #: [id number] : 1965 52 From: Nathanael Sanchez MD Referring Dr: Da Mcintyre MD Status: REG CLI Ordering Dr: Date: Location: [facility] Sex: M C COMPLETE PULMONARY FUNCTION TEST INTERPRETATION Brief HPI: Patient is a 52 year old male, currently under the care of Dr. Mcintyre, who presents to [facility] for complete pulmonary function tests secondary to [...] MD Date Dictated: 08/14/18623 Date Transcribed: 08/14/18623 Mushroom Laborer: DEVAN Signed CHEST PA AND LATERAL Observed: 08/13/2018 Status: F Source: [place] 7:21 AM [facility] REPOSITORY [facility] Imaging Services [address] [place] [address] Chest PA and Lateral MR#: [id number] Acct: [id number] Name: ZEESHAN ARMAS Rep #: [id number] : 1965 M 52 From: Florence Kessler MD PCP: Da Spangler MD Status: REG CLI Study: Chest PA and Lateral Date of Exam: 08/13/18 Exam# [id number] Ordering Dr: Da Mcintyre MD STUDY: X-RAY [...] CC: Da Mcintyre MD; Da Spangler MD Mushroom Laborer: Signed CARDIOLOGY VISIT Observed: 08/06/2018 Status: F Source: [place] REPORT 3:14 PM [facility] REPOSITORY [facility] [address] [place] [address] OFFICE VISIT Date of Service: 08/06/18 MR#: [id number] Acct: [id number] Name: ZEESHAN ARMAS Rep #: [id number] : 1965 Provider: Da Mcintyre MD Age/Sex: 52/M [place] [facility] [place]: Signed HPI HPI Details: ZEESHAN ARMAS, [...] Intake Visit Reasons: Abn. Stress Echo, Ref. aMlina Calles Allergies No Known Allergies Allergy (Unverified [...] tab PO DAILY 08/06/18 [History Confirmed 08/06/18] rrjjaecj-vfm-pyqzm acid 300 mcg-lycopene 600 mcg-lutein 300 mcg tablet 1 tab PO DAILY 08/06/18 [History Confirmed 08/06/18] [facility] Medical History Hyperlipemia (Chronic) Type 2 diabetes [...] Observed: 08/06/2018 Status: F Source: [place] BY [facility] 1:40 PM [facility] REPOSITORY [facility] [address] [place] [address] 12 Lead EKG performed by [facility] 08/06/181338 MR#: [id number] Acct: [id number] Name: ZEESHAN ARMAS Rep #: [id number] : 1965 52 From: Da Mcintyre MD Attending Dr: Da Mcintyre MD Status: REG AMB Ordering Dr: Da Mcintyre MD Date: 08/06/18 [place] [facility] Sex: M C Admitted: [facility]/12 Lead EKG performed by [facility] ECG Report Interpretation Sinus Rhythm RSR(V1) -nondiagnostic. Poor R wave progressionABNORMAL Electronically signed on 08/06/2018 at 14:06 by Da Mcintyre Software Version 8610 08/06/18 1411 Date Da Mcintyre MD CC: Da Spangler MD Date Dictated: 08/06/181338 Date Transcribed: 08/06/181338 Mushroom Laborer: PM Signed PROTHROMBIN TIME W/INR Collected: 08/06/2018 Status: F Source: [place] 8:34 AM [facility] REPOSITORY TYPE CODE TESTS RESULT OUT OF RANGE REFERENCE UNITS LAB L300.4150 11.7-14.9 SECONDS Normal PROTIME 13.0 LAB L300.4200 Normal INR 1.0 Performed By: #### L300.3900 #### [facility] [address] [place], [address] CBC W/DIFF, AUTOMATED Collected: 08/06/2018 Status: F Source: [place] 8:34 AM [facility] REPOSITORY TYPE CODE TESTS RESULT OUT OF [...] Lymph 2.12 Performed By: #### L100.0100 #### [facility] [address] [place], [address] BASIC METABOLIC Collected: 08/06/2018 Status: F Source: [place] PROFILE (BMP) 8:34 AM [facility] REPOSITORY Order Comment: UTO TYPE CODE TESTS [...] Performed By: #### L500.2500, L500.3400, L500.4100 #### [facility] [address] [place], [place], [address] LIVER PROFILE Collected: 08/06/2018 Status: F Source: [place] 8:34 AM [facility] REPOSITORY Order Comment: UTO TYPE CODE TESTS [...] Performed By: #### L500.2500, L500.3400, L500.4100 #### [facility] [address] [place], [place], [address] LIPID PROFILE Collected: 08/06/2018 Status: F Source: [place] 8:34 AM [facility] REPOSITORY Order Comment: UTO TYPE CODE TESTS [...] Performed By: #### L500.2500, L500.3400, L500.4100 #### [facility] [address] [place], [place], [address] HEMOGLOBIN A1C Collected: 08/06/2018 Status: F Source: [place] 8:34 [facility] REPOSITORY TYPE CODE TESTS RESULT OUT OF RANGE REFERENCE UNITS LAB L501.9985 4.2-6.3 % High HGB A1C 6.7 Performed By: #### L501.9985 #### [facility] [address] [place], [address] STRESS TEST ECHO W/O Observed: 07/14/2018 Status: F Source: [place] CONTRAST 1:55 PM [facility] REPOSITORY [facility] Cardiovascular Services [address] [place] [address] Stress Test Echo W/Contrast MR#: [id number] Acct: [id number] Name: ZEESHAN ARMAS Rep #: [id number] : 1965 52 From: Da Mcintyre MD [...] Date Dictated: 07/14/18 1001 Date Transcribed: 07/14/18 8423 Mushroom Laborer: Signed CBC W/DIFF, AUTOMATED Collected: 01/30/2018 Status: F Source: [place] 9:20 AM [facility] REPOSITORY TYPE CODE TESTS RESULT OUT OF [...] Lymph 1.86 Performed By: #### L100.0100 #### [facility] [address] [place], [place], [address] BASIC METABOLIC Collected: 01/30/2018 Status: F Source: [place] PROFILE (BMP) 9:20 AM [facility] REPOSITORY TYPE CODE TESTS RESULT OUT OF [...] Performed By: #### L500.2500, L500.3400, L500.4100 #### [facility] [address] [place], [address] LIVER PROFILE Collected: 01/30/2018 Status: F Source: [place] 9:20 AM [facility] REPOSITORY TYPE CODE TESTS RESULT OUT OF [...] Performed By: #### L500.2500, L500.3400, L500.4100 #### [facility] [address] [place], [address] LIPID PROFILE Collected: 01/30/2018 Status: F Source: [place] 9:20 AM [facility] REPOSITORY TYPE CODE TESTS RESULT OUT OF [...] Performed By: #### L500.2500, L500.3400, L500.4100 #### [facility] [address] [place], [address] ALLERGIES ALLERGIES DATE TYPE / CODE NAME / CODE REACTION SEVERITY SOURCE 08/06/2018 Drug No Known Unknown [place] [facility] Allergy/4160 Allergies/F00 Hospital 53966(SNOMED 9551864(RXNOR Repository CT) M) ENCOUNTERS ENCOUNTERS ADMIT/DISCHARGE ACCOUNT ADMITTING ENCOUNTER LOCATION SOURCE NUMBER CLASS 08/27/2018 [id number] Ambulatory [place] 7 [facility] ing:LAB Repository 08/25/2018/ [id number] Ambulatory BMSBuilding:W [place] 8 8 [facility] Repository 08/25/2018/ [id number] Ambulatory [place] 8 8 [facility] ing:CLSP Repository 08/14/2018 [id number] Ambulatory BMSBuilding:W [place] 2 [facility] Repository 08/13/2018 [id number] Ambulatory [place] 5 [facility] ing:PSN Repository 08/06/2018/ [id number] Ambulatory BMSBuilding:B [place] 8 0 [facility] Repository 08/06/2018 [id number] Ambulatory [place] 3 [facility] ing:MFPLAB Repository 08/05/2018 [id number] Ambulatory BMSBuilding:B [place] 0 [facility] Repository 07/14/2018 [id number] Ambulatory [place] 2 [facility] ing:CVS Repository 07/14/2018 [id number] Ambulatory BMSBuilding:W [place] 3 [facility] Repository 06/30/2018 [id number] Ambulatory [place] 4 [facility] ing:CVS Repository 01/30/2018 [id number] Ambulatory [place] 6 [facility] ing:MFPLAB Repository PAYERS PAYERS ENCOUNTER GUARANTOR PAYER SUBSCRIBER SOURCE 08/27/2018 ZEESHAN Reid Primary ZEESHAN [id number] Insurance:HEALTH VANSICKLEDOB: [facility] Monkey Bizness [facility] [id number], [place] [address]Nlqqgh Number: Repository [id number]: ([phone]) [id number] [phone] () Date:5817-83-56PH [address] [place] [phone]: 08/27/2018 Secondary NOT GIVENUNK [place] Insurance:SELF PAY Community [facility] Number: Effective Repository Date:2018-08-27 08/25/2018 ZEESHAN Reid Primary ZEESHAN Reid [place] [id number] Insurance:HEALTH VANSICKLEDOB: Community [facility] [id number], [place] [address]Lybzyg Number: Repository [phone]: ([phone] [id number] [phone] (HP) Date:2451-24-30XU [facility] [address] [place] [phone]: 08/25/2018 Secondary NOT GIVENUNK [place] Insurance:SELF PAY [facility] Number: Effective Repository Date:2018-08-25 08/25/2018 ZEESHAN Reid Primary ZEESHAN Reid [place] [id number] Insurance:HEALTH VANSICKLEDOB: Community [facility]UCIA MORELOS[facility] [id number], [place] [address]Esgvpe Number: Repository [phone]: (419 [id number] [phone] (HP) Date:8516-88-55MK [address] [address]MF: 08/25/2018 Secondary NOT GIVENUNK [place] Insurance:SELF PAY [facility] Number: Effective Repository Date:2018-08-06 08/14/2018 ZEESHAN Reid Primary ZEESHAN Reid [place] [id number] Insurance:HEALTH VANSICKLEDOB: Community [facility] [id number], [place] [address]Uatbjm Number: Repository [phone]: ([phone] [id number] [phone] (HP) Date:6291-62-17KO [address] [address]GA: 08/14/2018 Secondary NOT GIVENUNK [place] Insurance:SELF PAY Community [facility] Number: Effective Repository Date:2018-08-14 08/13/2018 ZEESHAN Reid Primary ZEESHAN Reid [place] [id number] Insurance:HEALTH VANSICKLEDOB: Community [facility]UCIA MORELOS[facility] [id number], [place] [address]Gdfqga Number: Repository [phone]: ([phone] [id number] [phone] (HP) Date:8848-42-52KG [address] [place] [phone]: 08/13/2018 Secondary NOT GIVENUNK [place] Insurance:SELF PAY [facility] Number: Effective Repository Date:2018-08-06 08/06/2018 ZEESHAN Reid Primary ZEESHAN Reid [place] [id number] Insurance:HEALTH VANSICKLEDOB: Community [facility]IA R[facility]/[facility] [id number], [place] [address]Hdhqbq Number: Repository [address]Nib: 419 [id number] [phone] (HP) Date:7254-08-99RU [address] [place] [phone]: 08/06/2018 Secondary NOT GIVENUNK [place] Insurance:SELF PAY [facility] Number: Effective Repository Date:2018-08-06 08/06/2018 ZEESHAN Reid Primary ZEESHAN Reid [place] [id number] Insurance:HEALTH VANSICKLEDOB: Community [facility] [id number], [place] [address]Gizzdh Number: Repository [phone]: ([phone] [id number] [phone] (HP) Date:2647-68-23PQ [address] [address]WB: 08/06/2018 Secondary NOT GIVENUNK [place] Insurance:SELF PAY [facility] Number: Effective Repository Date:2018-08-06 08/05/2018 ZEESHAN Reid Primary ZEESHAN Reid [place] [id number] Insurance:HEALTH VANSICKLEDOB: Community [facility] M[facility] [id number], [place] [address]Owasre Number: Repository [id number]: ([phone] [id number] [phone]) Date:0951-87-02IJ [address] [place] [phone]: 08/05/2018 Secondary NOT GIVENUNK [place] Insurance:SELF PAY Community [facility] Number: Effective Repository Date:2018-08-05 07/14/2018 ZEESHAN K Primary ZEESHAN Reid [place] [id number] Insurance:HEALTH VANSICKLEDOB: Community [facility] [id number], [place] [address]Iackdn Number: Repository [id number]: ([phone] [id number] [phone] (HP) Date:5931-51-79DR [address] [place] [address]PR: 07/14/2018 Secondary NOT GIVENUNK [place] Insurance:SELF PAY Community [facility] Number: Effective Repository Date:2018-07-06 07/14/2018 ZEESHAN K Primary ZEESHAN Reid [place] [id number] Insurance:HEALTH VANSICKLEDOB: Community [facility] [id number], [place] [address]Zwmvzf Number: Repository [phone]: (419) [id number] [phone] (HP) Date:5669-82-75FT [address] [place] [address]BV: 07/14/2018 Secondary NOT GIVENUNK [place] Insurance:SELF PAY [facility] Number: Effective Repository Date:2018-07-14 06/30/2018 ZEESHAN Reid Primary ZEESHAN Reid [place] [id number] Insurance:HEALTH VANSICKLEDOB: Community [facility] [id number], [place] [address]Ruamyc Number: Repository [id number]: ([phone] [id number] [phone]) Date:3860-76-29OD [address] [place] [phone]: 06/30/2018 Secondary NOT GIVENUNK [place] Insurance:SELF PAY [facility] Number: Effective Repository Date:2018-06-18 01/30/2018 Zeeshan Tello [id number] Insurance:HEALTH SickleDOB: Community Lucia Morelosed [facility]/[place] [id number] [place], [place] [address]Tvpscj Number: Repository [phone]: ([phone]) [id number] [phone] () Date:4414-95-16PA [address] [address]TO: 01/30/2018 Secondary NOT GIVENUNK [place] Insurance:SELF PAY [facility] Number: Effective Repository Date:2018-01-30
== END ==
PROVIDERS: Family Provider Family Medicine; PCP Family Medicine; Referring Provider Internal Medicine Cardiovascular Disease; Visit Provider Internal Medicine Cardiovascular Disease
DX: E11.9 Type 2 diabetes mellitus without complications (principal)
CPT/HCPCS: 36415; 80048

== ENCOUNTER → 2018-11-19 06:08 | Outpatient (CLI) | payer OTHER, SELFPAY ==
[2018-11-17 13:10] VITALS: BMI 36.3
[2018-11-19 07:48] LABS: Anion Gap 11 (5-15); BUN 16 mg/dL (7-18); BUN/Creat Ratio 11.6 RATIO (10-20); Calcium,Total 8.8 mg/dL (8.5-10.1); Chloride 98 mmol/L (98-107); Creatinine, Serum 1.38 mg/dL (0.70-1.30); EST Glomerular Filtration Rate 57 mL/min (>60); Est Glom Filt Rate - Afr Amer 69 mL/min (>60); Glucose 118 mg/dL (74-106); Potassium 4.1 mmol/L (3.5-5.1); Sodium Level 136 mmol/L (136-145)
== END ==
PROVIDERS: Family Provider Family Medicine; PCP Family Medicine; Referring Provider Family Medicine; Visit Provider Family Medicine
DX: E11.9 Type 2 diabetes mellitus without complications (principal)
CPT/HCPCS: 36415; 80048

== ENCOUNTER 2018-12-15 08:51 | Day surgery (SDC) | payer OTHER, SELFPAY ==
[2018-12-01 14:24] VITALS: BMI 36.3
[2018-12-15 09:12] VITALS: BP 146/89; PULSE 98; RESP 16; TEMP 36.9; O2SAT 97; BMI 34.3
[2018-12-15 09:26] LABS: Bedside Glucose 134 mg/dL (70-110)
--- NOTE | 2018-12-15 10:00 | IMM_PTH ---
PATIENT: ZEESHAN ARMAS LOC: EN U#:[id number] AGE/SX: 53/M ROOM: RE12/15/[address]: Dr. Rasheed Shahid MD : 1965 BED: DIS: 12/15/2018 SPEC #: [id number] RECD: 12/15/18 11:27 STATUS: LUIS DANIEL [place] #: [id number] JENNIFER: 12/15/18 10:[address]: Rasheed Shahid DEPT: IMMUNOHISTOCHEMISTRY RECD BY: Chanel Cohn ENTERED: 12/15/18 14:56 SP TYPE: IMMUNO OTHR DR: Dr. Da Spangler MD Tissues: A - Stomach, NOS Procedures: H Pylori (initial) PHYSICIAN & INSTITUTION [place] [address] SPECIMEN INFORMATION: Tissue Source: A - Antral biopsy Clinical Info: Iron deficiency anemia, black stools Specimen Number: [id number] CPT code: 83961 METHODOLOGY: Deparaffinized sections of prefer/formalin-fixed tissue or PAP/DQ stained slides are incubated with monoclonal/polyclonal antibodies/oligonucleotide probes. Localization is made via biotin free immunoperoxidase method. Appropriate controls are performed and reacted as expected. Results on target cell population are indicated in the following table: RESULTS: ANTIBODY / CLONE RESULT Block A H Pylori (polyclonal) negative These tests were developed and their performance characteristics determined by [facility]. They may not have been cleared or approved by the U.S. Food and Drug Administration. The FDA has determined that such clearance or approval is not necessary. INTERPRETATION: A. Antral biopsy: Negative for Helicobacter pylori organisms. SJ:farrah 12/17/18
--- NOTE | 2018-12-15 10:00 | EGD_PTH ---
PATIENT: ZEESHAN ARMAS LOC: EN U#:[id number] AGE/SX: 53/M ROOM: RE12/15/[address]: [address]. Rasheed Shahid MD : 1965 BED: DIS: 12/15/2018 SPEC #: [id number] RECD: 12/15/18 11:27 STATUS: LUIS DANIEL ASHLEY #: [id number] JENNIFER: 12/15/18 10:[address]: Rasheed Shahid DEPT: SURGICAL PATHOLOGY RECD BY: Ezekiel Ramirez ENTERED: 12/15/18 13:03 SP TYPE: EGD BIOPSY OTHR DR: Dr. Da Spangler MD Tissues: A - Gastric mucous membrane B - Stomach, NOS Procedures: Surgery Specimen Level IV HEADER OPERATION: Colonoscopy, [place] PRE-OP DIAGNOSIS: Iron deficiency anemia, black stools TISSUE SUBMITTED: A - Antral biopsy for histo and H. pylori, B - Stomach polyp biopsy MICROSCOPIC DIAGNOSIS A. Antral biopsy: Mild gastritis. See microscopic description and comment. B. Stomach polyp, biopsy: Fragments of fundic gland polyp. XIOMARA:farrah 12/16/18 COMMENT A. The results of immunohistochemistry for Helicobacter pylori will be reported separately ([id number]). MICROSCOPIC DESCRIPTION Slides are reviewed. A. The specimen shows fragments of gastric mucosa with chronic inflammatory cell infiltrates in the lamina propria consisting of lymphocytes and plasma cells, consistent with mild chronic gastritis. GROSS DESCRIPTION A - Received in fixative is one container labeled with the patient's name and designated antral biopsy. The specimen consists of two irregular fragments of light del real soft tissue that in aggregate measure 0.5 x 0.4 x 0.1 cm. The specimen is totally submitted in one cassette. B - Received in fixative is one container labeled with the patient's name and designated stomach polyp biopsy. The specimen consists of multiple irregular fragments of light del real soft tissue that in aggregate measure 0.5 x 0.5 x 0.1 cm. The specimen is totally submitted in one cassette. / XIOMARA:farrah 12/15/18 TC:5 CPT: 86541 x2
[2018-12-15 10:13] VITALS: BP 111/84; BP 146/89; PULSE 104; RESP 18; TEMP 36.2; O2SAT 95
--- NOTE | 2018-12-15 10:14 | OP.ENDO_ITS ---
12/15/2018 Da Spangler MD [address] [place] [id number] Re : Upper GI endoscopy procedure for Armen Summerssickle Dear Dr. Spangler This procedure was performed on Saturday, December 15, 2018. My impressions and recommendations are as follows: Impressions : - Normal esophagus. - Normal stomach. - Normal examined duodenum. - Biopsies were taken with a cold forceps for Helicobacter pylori testing. Recommendations : - Discharge patient to home. - Resume previous diet. - Continue present medications. - Await pathology results. - Refer to a workplace rehabilitation officer. - To visualize the small bowel, perform video capsule endoscopy. My findings are described in the full procedure note, which is enclosed. If I can be of further assistance, please feel free to contact me at Doctor phone number(s): , Work: . Sincerely, Rasheed Shahid MD 12/15/2018 10:14:22 AM This report has been signed electronically.
--- NOTE | 2018-12-15 10:16 | OP.ENDO_ITS ---
12/15/2018 Da Spangler MD [address] [place] [address] Re : Colonoscopy procedure for Armen Olson Dear Dr. Spangler This procedure was performed on Saturday, December 15, 2018. My impressions and recommendations are as follows: Impressions : - Diverticulosis in the recto-sigmoid colon. - The examination was otherwise normal on direct and retroflexion views. - No specimens collected. Recommendations : - Discharge patient to home. - Resume previous diet. - Continue present medications. - Repeat colonoscopy in 5 years for surveillance. My findings are described in the full procedure note, which is enclosed. If I can be of further assistance, please feel free to contact me at Doctor phone number(s): , Work: . Sincerely, Rasheed Shahid MD 12/15/2018 10:16:10 AM This report has been signed electronically.
[2018-12-15 10:20] VITALS: BP 123/86; BP 146/89; PULSE 92; RESP 18; O2SAT 94
[2018-12-15 10:25] VITALS: BP 125/86; BP 146/89; PULSE 84; RESP 18; O2SAT 96
[2018-12-15 10:30] VITALS: BP 129/82; BP 146/89; PULSE 81; RESP 18; TEMP 36.7; O2SAT 95
[2018-12-15 10:55] VITALS: BP 146/89
== END 2018-12-15 10:56 | disposition home or self-care (01) ==
LOC: EN 08:51 → AC 08:52
PROVIDERS: Family Provider Family Medicine; PCP Family Medicine; Referring Provider Surgery; Visit Provider Surgery
PROC: 0DJD8ZZ Inspection of Lower Intestinal Tract, Via Natural or Artificial Opening Endoscopic (ICD-10-PCS; CPT 45378; principal; 2018-12-15 09:55)
DX: K29.70 Gastritis, unspecified, without bleeding (principal); K57.30 Diverticulosis of large intestine without perforation or abscess without bleeding; K31.7 Polyp of stomach and duodenum; D50.9 Iron deficiency anemia, unspecified; E11.9 Type 2 diabetes mellitus without complications; I10 Essential (primary) hypertension; E78.5 Hyperlipidemia, unspecified; K21.9 Gastro-esophageal reflux disease without esophagitis; R94.31 Abnormal electrocardiogram [ECG] [EKG]; Z79.84 Long term (current) use of oral hypoglycemic drugs; Z79.82 Long term (current) use of aspirin; Z79.899 Other long term (current) drug therapy; Z87.19 Personal history of other diseases of the digestive system; Z80.0 Family history of malignant neoplasm of digestive organs
CPT/HCPCS: 43239; 45378; 82962; 88305; 88342; J7120

== ENCOUNTER → 2019-05-13 | Outpatient (CLI) | payer OTHER, SELFPAY ==
[2019-05-13 10:50] LABS: Anion Gap 7 (5-15); BUN 19 mg/dL (7-18); BUN/Creat Ratio 14.5 RATIO (10-20); Calcium,Total 9.5 mg/dL (8.5-10.1); Chloride 104 mmol/L (98-107); Creatinine, Serum 1.31 mg/dL (0.70-1.30); EST Glomerular Filtration Rate 60 mL/min (>60); Est Glom Filt Rate - Afr Amer 73 mL/min (>60); Glucose 107 mg/dL (74-106); Potassium 4.1 mmol/L (3.5-5.1); Sodium Level 137 mmol/L (136-145)
== END | disposition home or self-care (01) ==
LOC: MFPLAB 08:21
PROVIDERS: Family Provider Family Medicine; PCP Family Medicine; Referring Provider Family Medicine; Visit Provider Family Medicine
DX: E11.9 Type 2 diabetes mellitus without complications (principal)
CPT/HCPCS: 36415; 80048

== ENCOUNTER → 2020-10-27 08:26 | Outpatient (CLI) | payer OTHER, SELFPAY ==
[2020-10-27 10:05] LABS: Anion Gap 7 (5-15); BUN 14 mg/dL (7-18); BUN/Creat Ratio 12.7 RATIO (10-20); Calcium,Total 9.5 mg/dL (8.5-10.1); Chloride 99 mmol/L (98-107); EST Glomerular Filtration Rate 73 mL/min (>60); Est Glom Filt Rate - Afr Amer 89 mL/min (>60); Glucose 115 mg/dL (74-106); Potassium 3.8 mmol/L (3.5-5.1); Sodium Level 133 mmol/L (136-145)
[2020-10-27 13:13] LABS: Microalbumin,Random Urine 6.2 mg/L (NO RANGE EST.)
== END ==
LOC: MFPLAB 08:28
PROVIDERS: PCP Family Medicine; Referring Provider Family Medicine; Visit Provider Family Medicine
DX: E11.9 Type 2 diabetes mellitus without complications (principal)
CPT/HCPCS: 36415; 80048; 82043; 82570

== ENCOUNTER → 2021-03-27 13:44 | Outpatient (CLI) | payer OTHER, SELFPAY | PROVIDERS: PCP Family Medicine; Visit Provider Family Medicine | DX: J01.90 Acute sinusitis, unspecified (principal) | CPT/HCPCS: 87635; U0005; U0003 ==

== ENCOUNTER → 2021-04-30 08:44 | Outpatient (CLI) | payer OTHER, SELFPAY ==
[2021-04-30 10:24] LABS: Anion Gap 8 (5-15); BUN 18 mg/dL (7-18); BUN/Creat Ratio 15.9 RATIO (10-20); Calcium,Total 9.1 mg/dL (8.5-10.1); Chloride 96 mmol/L (98-107); Creatinine, Serum 1.13 mg/dL (0.70-1.30); EST Glomerular Filtration Rate 71 mL/min (>60); Est Glom Filt Rate - Afr Amer 86 mL/min (>60); Glucose 114 mg/dL (74-106); Potassium 3.6 mmol/L (3.5-5.1); Sodium Level 130 mmol/L (136-145)
== END ==
LOC: MFPLAB 08:45
PROVIDERS: PCP Family Medicine; Referring Provider Family Medicine; Visit Provider Family Medicine
DX: E11.9 Type 2 diabetes mellitus without complications (principal)
CPT/HCPCS: 36415; 80048

== ENCOUNTER 2021-11-21 09:24 | Outpatient (CLI) | payer OTHER, SELFPAY ==
[2021-11-21 12:22] LABS: Absolute Lymphocyte Count 1.63 X10^3/uL (0.83-4.51); Absolute Neutrophil Count 7.3 X10^3/uL (2.0-7.7); Basophil# 0.05 X10^3/uL; Basophil% 0.5 % (0-1); Eosinophil# 0.16 X10^3/uL; Eosinophils% 1.6 % (0-5); Hematocrit 41.7 % (40-54); Hemoglobin 13.9 g/dL (13.0-16.5); Lymphocyte # 1.63 X10^3/ul (0.83-4.51); Lymphocyte % 15.9 % (19-41); Mean Corp Hgb Conc 33.3 g/dL (32-36); Mean Corpuscular Hgb 30.3 pg (27.0-32.0); Mean Platelet Vol. 8.9 fl (6.2-12.0); Monocyte# 1.05 X10^3/uL; Monocyte% 10.3 % (0-10); NRBC Flagged by Analyzer 0 % (0-5); Neutrophil # 7.27 X10^3/uL (2.7-7.7); Neutrophil % 70.9 % (47-70); Platelet Count 415 K/mm3 (150-450); RBC Distribution Width CV 12.3 % (11.6-14.6); RBC Distribution Width SD 40.9 fl (35.1-43.9); Red Blood Count 4.58 M/mm3 (4.6-6.2); White Blood Count 10.2 K/mm3 (4.4-11.0)
[2021-11-21 12:48] LABS: Anion Gap 7 (5-15); BUN 15 mg/dL (7-18); Calcium,Total 9.6 mg/dL (8.5-10.1); Chloride 99 mmol/L (98-107); Cholesterol 123 mg/dL (200); Creatinine, Serum 1.15 mg/dL (0.70-1.30); EST Glomerular Filtration Rate 69 mL/min (>60); Est Glom Filt Rate - Afr Amer 84 mL/min (>60); Glucose 115 mg/dL (74-106); High Density Lipoprotein 35 mg/dL; Potassium 3.9 mmol/L (3.5-5.1); Sodium Level 133 mmol/L (136-145); Thyroid Stim Hormone (TSH) 3.07 uIU/mL (0.358-3.74); Triglycerides 157 mg/dL; Very Low Density Lipoprotein 31 mg/dL (5-40)
== END 2021-11-21 23:59 | disposition home or self-care (01) ==
LOC: MFPLAB 09:25
PROVIDERS: PCP Family Medicine; Referring Provider Family Medicine; Visit Provider Family Medicine
DX: E11.9 Type 2 diabetes mellitus without complications (principal); R53.83 Other fatigue
CPT/HCPCS: 36415; 80048; 80061; 84403; 84443; 85025

== ENCOUNTER → 2022-02-07 | Outpatient (CLI) | payer OTHER, SELFPAY | END | disposition home or self-care (01) | LOC: MFPLAB 10:49 | PROVIDERS: PCP Family Medicine; Visit Provider Family Medicine | DX: R53.83 Other fatigue (principal) | CPT/HCPCS: 36415; 84403 ==

== ENCOUNTER → 2022-05-20 | Outpatient (CLI) | payer OTHER, SELFPAY ==
[2022-05-20 10:18] LABS: Anion Gap 9 (5-15); BUN 13 mg/dL (7-18); BUN/Creat Ratio 11.2 RATIO (10-20); Calcium,Total 9.1 mg/dL (8.5-10.1); Chloride 96 mmol/L (98-107); Creatinine, Serum 1.16 mg/dL (0.70-1.30); EST Glomerular Filtration Rate 69 mL/min (>60); Est Glom Filt Rate - Afr Amer 83 mL/min (>60); Glucose 110 mg/dL (74-106); Potassium 3.8 mmol/L (3.5-5.1); Sodium Level 131 mmol/L (136-145)
== END | disposition home or self-care (01) ==
LOC: MFPLAB 08:19
PROVIDERS: PCP Family Medicine; Visit Provider Family Medicine
DX: E11.9 Type 2 diabetes mellitus without complications (principal); E29.1 Testicular hypofunction
CPT/HCPCS: 36415; 80048; 84403

== ENCOUNTER → 2022-10-30 | Outpatient (CLI) | payer OTHER, SELFPAY ==
[2022-10-30 10:35] LABS: Anion Gap 8 (5-15); BUN 11 mg/dL (7-18); BUN/Creat Ratio 9.4 RATIO (10-20); Calcium,Total 9.6 mg/dL (8.5-10.1); Chloride 98 mmol/L (98-107); Cholesterol 113 mg/dL (200); Creatinine, Serum 1.17 mg/dL (0.70-1.30); EST Glomerular Filtration Rate 68 mL/min (>60); Est Glom Filt Rate - Afr Amer 82 mL/min (>60); Glucose 104 mg/dL (74-106); High Density Lipoprotein 40 mg/dL; Sodium Level 134 mmol/L (136-145); Triglycerides 130 mg/dL; Very Low Density Lipoprotein 26 mg/dL (5-40)
[2022-10-30 10:54] LABS: Microalbumin,Random Urine 5.9 mg/L (NO RANGE EST.); Microalbumin:Creatinine Ratio 9.6 mg/g CRE (<30 mg/g CRE)
== END | disposition home or self-care (01) ==
LOC: MFPLAB 08:48
PROVIDERS: PCP Family Medicine; Referring Provider Family Medicine; Visit Provider Family Medicine
DX: E11.9 Type 2 diabetes mellitus without complications (principal); E29.1 Testicular hypofunction
CPT/HCPCS: 36415; 80048; 80061; 82043; 82570; 84403

== ENCOUNTER → 2023-05-16 | Outpatient (CLI) | payer OTHER, SELFPAY ==
[2023-05-16 10:22] LABS: Absolute Lymphocyte Count 1.95 X10^3/uL (0.83-4.51); Absolute Neutrophil Count 5.3 X10^3/uL (2.0-7.7); Basophil# 0.07 X10^3/uL; Basophil% 0.8 % (0-1); Eosinophil# 0.26 X10^3/uL; Hematocrit 48.6 % (40-54); Hemoglobin 16.1 g/dL (13.0-16.5); Lymphocyte # 1.95 X10^3/ul (0.83-4.51); Lymphocyte % 22.7 % (19-41); Mean Corp Hgb Conc 33.1 g/dL (32-36); Mean Corpuscular Hgb 30.3 pg (27.0-32.0); Mean Corpuscular Volume 91.4 fL (80-94); Mean Platelet Vol. 8.7 fl (6.2-12.0); Monocyte# 0.94 X10^3/uL; NRBC Flagged by Analyzer 0 % (0-5); Neutrophil # 5.27 X10^3/uL (2.7-7.7); Neutrophil % 61.5 % (47-70); Platelet Count 272 K/mm3 (150-450); RBC Distribution Width CV 13.3 % (11.6-14.6); Red Blood Count 5.32 M/mm3 (4.6-6.2); White Blood Count 8.6 K/mm3 (4.4-11.0)
[2023-05-16 10:38] LABS: Microalbumin,Random Urine 11.1 mg/L (NO RANGE EST.); Microalbumin:Creatinine Ratio 29.3 mg/g CRE (<30 mg/g CRE)
[2023-05-16 10:43] LABS: Anion Gap 6 (5-15); BUN 10 mg/dL (7-18); BUN/Creat Ratio 9.3 RATIO (10-20); Calcium,Total 9.3 mg/dL (8.5-10.1); Chloride 99 mmol/L (98-107); Cholesterol 110 mg/dL (200); Creatinine, Serum 1.08 mg/dL (0.70-1.30); EST Glomerular Filtration Rate 74 mL/min (>60); Est Glom Filt Rate - Afr Amer 90 mL/min (>60); Glucose 106 mg/dL (74-106); High Density Lipoprotein 38 mg/dL; PSA,Total - Annual Screen 1.79 ng/mL (0.00-4.00); Sodium Level 133 mmol/L (136-145); Triglycerides 200 mg/dL; Very Low Density Lipoprotein 40 mg/dL (5-40)
== END | disposition home or self-care (01) ==
LOC: MFPLAB 08:49
PROVIDERS: PCP Family Medicine; Visit Provider Family Medicine
DX: E29.1 Testicular hypofunction (principal); E11.9 Type 2 diabetes mellitus without complications
CPT/HCPCS: 36415; 80048; 80061; 82043; 82570; 84153; 84403; 85025; G0103

== ENCOUNTER → 2023-11-19 | Outpatient (CLI) | payer OTHER, SELFPAY ==
[2023-11-19 10:07] LABS: Absolute Lymphocyte Count 2.26 X10^3/uL (0.83-4.51); Absolute Neutrophil Count 4.1 X10^3/uL (2.0-7.7); Basophil# 0.03 X10^3/uL; Basophil% 0.4 % (0-1); Eosinophil# 0.13 X10^3/uL; Eosinophils% 1.8 % (0-5); Hematocrit 41.5 % (40-54); Hemoglobin 13.8 g/dL (13.0-16.5); Lymphocyte # 2.26 X10^3/ul (0.83-4.51); Lymphocyte % 30.5 % (19-41); Mean Corp Hgb Conc 33.3 g/dL (32-36); Mean Corpuscular Hgb 30.8 pg (27.0-32.0); Mean Corpuscular Volume 92.6 fL (80-94); Mean Platelet Vol. 9.4 fl (6.2-12.0); Monocyte# 0.87 X10^3/uL; Monocyte% 11.8 % (0-10); NRBC Flagged by Analyzer 0 % (0-5); Neutrophil # 4.05 X10^3/uL (2.7-7.7); Neutrophil % 54.7 % (47-70); Platelet Count 274 K/mm3 (150-450); RBC Distribution Width CV 13.7 % (11.6-14.6); Red Blood Count 4.48 M/mm3 (4.6-6.2); White Blood Count 7.4 K/mm3 (4.4-11.0)
[2023-11-19 10:35] LABS: Microalbumin,Random Urine 9.3 mg/L (NO RANGE EST.); Microalbumin:Creatinine Ratio 11.4 mg/g CRE (<30 mg/g CRE)
[2023-11-19 10:40] LABS: ALB/GLOB Ratio 1.1 RATIO (0.9-2.4); AST(SGOT) 26 U/L (15-37); Alanine Aminotransfer ALT/SGPT 26 U/L (16-61); Albumin, Serum 3.4 g/dL (3.2-5.0); Alkaline Phosphatase 28 U/L (45-117); Anion Gap 6 (5-15); BUN 23 mg/dL (7-18); Calcium,Total 8.7 mg/dL (8.5-10.1); Chloride 98 mmol/L (98-107); Cholesterol 115 mg/dL (200); Creatinine, Serum 1.44 mg/dL (0.70-1.30); EST Glomerular Filtration Rate 53 mL/min (>60); Est Glom Filt Rate - Afr Amer 64 mL/min (>60); Globulin 3.2 g/dL (2.2-4.2); Glucose 106 mg/dL (74-106); High Density Lipoprotein 27 mg/dL; Potassium 3.8 mmol/L (3.5-5.1); Protein, Total 6.6 g/dL (6.4-8.2); Sodium Level 133 mmol/L (136-145); Triglycerides 373 mg/dL; Very Low Density Lipoprotein 75 mg/dL (5-40)
== END | disposition home or self-care (01) ==
LOC: MFPLAB 08:20
PROVIDERS: PCP Family Medicine; Visit Provider Family Medicine
DX: E29.1 Testicular hypofunction (principal); E11.9 Type 2 diabetes mellitus without complications
CPT/HCPCS: 36415; 80053; 80061; 82043; 82570; 84403; 85025

== ENCOUNTER → 2024-04-28 | Outpatient (CLI) | payer OTHER, SELFPAY ==
[2024-04-28 10:18] LABS: Absolute Lymphocyte Count 1.59 X10^3/uL (0.83-4.51); Absolute Neutrophil Count 4.6 X10^3/uL (2.0-7.7); Basophil# 0.07 X10^3/uL; Eosinophils% 1.4 % (0-5); Hemoglobin 16.2 g/dL (13.0-16.5); Lymphocyte # 1.59 X10^3/ul (0.83-4.51); Lymphocyte % 22.2 % (19-41); Mean Corp Hgb Conc 34.5 g/dL (32-36); Mean Corpuscular Hgb 30.5 pg (27.0-32.0); Mean Corpuscular Volume 88.3 fL (80-94); Mean Platelet Vol. 8.7 fl (6.2-12.0); Monocyte# 0.77 X10^3/uL; Monocyte% 10.8 % (0-10); NRBC Flagged by Analyzer 0 % (0-5); Neutrophil # 4.59 X10^3/uL (2.7-7.7); Platelet Count 378 K/mm3 (150-450); RBC Distribution Width CV 12.9 % (11.6-14.6); Red Blood Count 5.32 M/mm3 (4.6-6.2); White Blood Count 7.2 K/mm3 (4.4-11.0)
[2024-04-28 10:35] LABS: Anion Gap 7 (5-15); BUN 12 mg/dL (7-18); BUN/Creat Ratio 9.2 RATIO (10-20); Calcium,Total 9.8 mg/dL (8.5-10.1); Chloride 96 mmol/L (98-107); Cholesterol 118 mg/dL (200); Creatinine, Serum 1.31 mg/dL (0.70-1.30); EST Glomerular Filtration Rate 59 mL/min (>60); Est Glom Filt Rate - Afr Amer 72 mL/min (>60); Glucose 113 mg/dL (74-106); High Density Lipoprotein 52 mg/dL; Potassium 4.1 mmol/L (3.5-5.1); Sodium Level 129 mmol/L (136-145); Triglycerides 75 mg/dL; Very Low Density Lipoprotein 15 mg/dL (5-40)
== END | disposition home or self-care (01) ==
LOC: MFPLAB 08:55
PROVIDERS: PCP Family Medicine; Visit Provider Family Medicine
DX: E11.9 Type 2 diabetes mellitus without complications (principal); E29.1 Testicular hypofunction
CPT/HCPCS: 36415; 80048; 80061; 84403; 85025

== ENCOUNTER → 2024-10-28 | Outpatient (CLI) | payer OTHER, SELFPAY ==
[2024-10-28 10:34] LABS: Absolute Lymphocyte Count 2.07 X10^3/uL (0.83-4.51); Absolute Neutrophil Count 5.7 X10^3/uL (2.0-7.7); Basophil# 0.07 X10^3/uL; Basophil% 0.8 % (0-1); Eosinophil# 0.14 X10^3/uL; Eosinophils% 1.6 % (0-5); Hematocrit 41.7 % (40-54); Hemoglobin 14.5 g/dL (13.0-16.5); Lymphocyte # 2.07 X10^3/ul (0.83-4.51); Lymphocyte % 23.6 % (19-41); Mean Corp Hgb Conc 34.8 g/dL (32-36); Mean Corpuscular Hgb 30.9 pg (27.0-32.0); Mean Corpuscular Volume 88.9 fL (80-94); Mean Platelet Vol. 8.9 fl (6.2-12.0); Monocyte# 0.78 X10^3/uL; Monocyte% 8.9 % (0-10); NRBC Flagged by Analyzer 0 % (0-5); Neutrophil # 5.68 X10^3/uL (2.7-7.7); Neutrophil % 64.6 % (47-70); Platelet Count 391 K/mm3 (150-450); RBC Distribution Width SD 41.7 fl (35.1-43.9); Red Blood Count 4.69 M/mm3 (4.6-6.2); White Blood Count 8.8 K/mm3 (4.4-11.0)
[2024-10-28 11:30] LABS: Protein:Creat Ratio 71 mg/g CRE (0-200)
[2024-10-28 11:50] LABS: ALB/GLOB Ratio 1.1 RATIO (0.9-2.4); AST(SGOT) 24 U/L (15-37); Alanine Aminotransfer ALT/SGPT 33 U/L (16-61); Albumin, Serum 3.9 g/dL (3.2-5.0); Alkaline Phosphatase 34 U/L (45-117); Anion Gap 9 (5-15); BUN 14 mg/dL (7-18); BUN/Creat Ratio 10.4 RATIO (10-20); Calcium,Total 9.9 mg/dL (8.5-10.1); Chloride 96 mmol/L (98-107); Cholesterol 120 mg/dL (200); Creatinine, Serum 1.34 mg/dL (0.70-1.30); EST Glomerular Filtration Rate 58 mL/min (>60); Est Glom Filt Rate - Afr Amer 70 mL/min (>60); Globulin 3.7 g/dL (2.2-4.2); Glucose 106 mg/dL (74-106); High Density Lipoprotein 46 mg/dL; PSA,Total - Annual Screen 2.06 ng/mL (0.00-4.00); Potassium 3.9 mmol/L (3.5-5.1); Protein, Total 7.6 g/dL (6.4-8.2); Sodium Level 132 mmol/L (136-145); Triglycerides 112 mg/dL; Very Low Density Lipoprotein 22 mg/dL (5-40)
== END | disposition home or self-care (01) ==
LOC: MTLAB 08:29
PROVIDERS: PCP Family Medicine; Referring Provider Family Medicine; Visit Provider Family Medicine
DX: E11.9 Type 2 diabetes mellitus without complications (principal); E29.1 Testicular hypofunction
CPT/HCPCS: 36415; 80053; 80061; 82570; 84153; 84156; 84403; 85025; G0103

== ENCOUNTER → 2025-04-25 | Outpatient (CLI) | payer OTHER, SELFPAY ==
[2025-04-25 11:25] LABS: Anion Gap 15 (5-15); BUN 15 mg/dL (4-19); BUN/Creat Ratio 10.7 RATIO (10-20); Calcium,Total 11.1 mg/dL (7.6-11.0); Carbon Dioxide 23.5 mmol/L (21.0-32.0); Chloride 94 mmol/L (98-108); Glucose 106 mg/dL (70-99); Potassium 4.4 mmol/L (3.3-5.1)
== END | disposition home or self-care (01) ==
LOC: MFPLAB 08:44
PROVIDERS: PCP Family Medicine; Referring Provider Family Medicine; Visit Provider Family Medicine
DX: E11.9 Type 2 diabetes mellitus without complications (principal)
CPT/HCPCS: 36415; 80048

== ENCOUNTER → 2025-07-13 | Outpatient (CLI) | payer OTHER, SELFPAY ==
[2025-07-13 10:49] LABS: AST(SGOT) 30 U/L (<=37); Alanine Aminotransfer ALT/SGPT 24 U/L (<=46); Albumin, Serum 4.6 g/dL (3.4-4.8); Alkaline Phosphatase 36 U/L (40-129); Anion Gap 12 (5-15); BUN 15 mg/dL (4-19); BUN/Creat Ratio 11.6 RATIO (10-20); Calcium,Total 10.1 mg/dL (7.6-11.0); Carbon Dioxide 25.7 mmol/L (21.0-32.0); Chloride 92 mmol/L (98-108); Globulin 3.3 g/dL (2.2-4.2); Glucose 107 mg/dL (70-99); Potassium 4.1 mmol/L (3.3-5.1)
== END | disposition home or self-care (01) ==
LOC: MFPLAB 08:30
PROVIDERS: PCP Family Medicine; Visit Provider Family Medicine
DX: R10.9 Unspecified abdominal pain (principal)
CPT/HCPCS: 36415; 80053